=== PATIENT | female | born 1950 | race Caucasian/White ===

== ENCOUNTER 2016-11-10 22:22 | Emergency (ER) | payer BC, OTHER ==
[2016-11-10 23:07] VITALS: BP 85/64; PULSE 85; TEMP 97.7; BMI 30.9
--- NOTE | 2016-11-11 00:52 | PDOC ---
History of Present Illness - General History Source: Patient Exam Limitations: No Limitations - History of Present Illness Initial Comments: 11/11/16 00:53 Patient is a 66 year old female with a significant past medical history of parkinson's, arthritis, HTN, compressed L3 vertebra, recurring hernia, who presents to the ED with complaints of lethargy beginning 2.5 hours before arrival. Patient she reports being unable to stand and walk after eating 4 hours ago. reports patient did not lose consciousness but notice she was barely able to keep eyes open. reports patient is prescribed Carbidopa (25mg), and Gabapentin, but states she has not seen a Neurologist in 2 years due to lack of insurance. Denies facial droop, stroke symptoms. Denies chest pain, SOB, lightheadedness. Denies fever chills. Denies nausea, vomiting. Denies change in food. Denies any other symptoms. Surgeries: 3 umbilical hernias. Left and right knee replacement surgeries. Left arm surgery (broken, humerus replacement) Allergies: Iodine (Rash) PMD: Dr. Calloway <Pedro Costa - Last Filed: 11/11/16 00:53> <Porfirio Gustafson - Last Filed: 11/11/16 04:19> - General Chief Complaint: Altered Mental Status Stated Complaint: ALTERED MENTAL STATUS Time Seen by Provider: 11/10/16 23:21 Past History <Pedro Costa - Last Filed: 11/11/16 00:53> - Past Medical History Anemia: Yes Asthma: No Cancer: No Cardiac Disorders: No CVA: No COPD: No CHF: No Dementia: (FORGETFUL) Diabetes: No GI Disorders: No Disorders: No HTN: Yes Hypercholesterolemia: No Liver Disease: No Suicide Attempt (Hx): No Seizures: Yes (AGE 7) Thyroid Disease: No Other medical history: Parkinson's, arthritis - Surgical History Abdominal Surgery: Yes (HERNIA REPAIR TIMES 3) Cardiac Surgery: No Lung Surgery: No Neurologic Surgery: No Orthopedic Surgery: Yes (RIGHT AND LEFT KNEE REPLACEMENTS 2007 AND 2009) - Psycho/Social/Smoking Cessation Hx Anxiety: No Suicidal Ideation: No Smoking Status: No Smoking History: Never smoked Have you smoked in the past 12 months: No Number of Cigarettes Smoked Daily: 0 Information on smoking cessation initiated: No Hx Alcohol Use: No Drug/Substance Use Hx: No Substance Use Type: None Hx Substance Use Treatment: No <Porfirio Gustafson - Last Filed: 11/11/16 04:19> - Past Medical History Allergies/Adverse Reactions: Allergies Allergy/AdvReac Type Severity Reaction Status Date / Time iodine [Iodine] Allergy Unknown Rash Verified 11/10/16 23:04 Home Medications: Ambulatory Orders Sertraline HCl [Zoloft -] 50 mg PO DAILY tablet 10/24/14 Gabapentin [Neurontin -] 400 mg PO TID 11/03/14 Carbidopa/Levodopa *Cr* 25/100 [Sinemet *Cr* 25/100 -] 1 combo PO QID 12/13/14 Aspirin Coated [Ecotrin -] 81 mg PO DAILY #30 tablet.ec 01/26/16 Cephalexin Monohydrate [Keflex -] 500 mg PO Q6H #40 capsule 11/11/16 Review of Systems - Review of Systems Able to Perform ROS?: Yes Comments:: 11/11/16 00:53 GENERAL/CONSTITUTIONAL: +Lethargy No fever or chills. No weakness. HEAD, EYES, EARS, NOSE AND THROAT: No change in vision. No ear pain or discharge. No sore throat. CARDIOVASCULAR: No chest pain or shortness of breath. RESPIRATORY: No cough, wheezing, or hemoptysis. GASTROINTESTINAL: + Diarrhea. No nausea, vomiting or constipation. GENITOURINARY: No dysuria, frequency, or change in urination. MUSCULOSKELETAL: No joint or muscle swelling or pain. No neck or back pain. SKIN: +Pale No rash NEUROLOGIC: No headache, vertigo, loss of consciousness, or change in strength/ sensation. ENDOCRINE: No increased thirst. No abnormal weight change. HEMATOLOGIC/LYMPHATIC: No anemia, easy bleeding, or history of blood clots. ALLERGIC/IMMUNOLOGIC: No hives or skin allergy. All Other Systems: Reviewed and Negative <Pedro Costa - Last Filed: 11/11/16 00:53> *Physical Exam - Vital Signs Last Vital Signs Temp Pulse Resp BP Pulse Ox 97.7 F 85 20 85/64 97 11/10/16 23:04 11/10/16 23:04 11/10/16 23:04 11/10/16 23:04 11/10/16 23:04 - Physical Exam Comments: 11/11/16 00:54 GENERAL: Awake, alert, and fully oriented, in no acute distress HEAD: No signs of trauma EYES: PERRLA, EOMI, sclera anicteric, conjunctiva clear ENT: Auricles normal inspection, hearing grossly normal, nares patent, oropharynx clear without exudates. Moist mucosa NECK: Normal ROM, supple, no lymphadenopathy, JVD, or masses LUNGS: Breath sounds equal, clear to auscultation bilaterally. No wheezes, and no crackles HEART: Regular rate and rhythm, normal S1 and S2, no murmurs, rubs or gallops ABDOMEN: Soft, nontender, normoactive bowel sounds. No guarding, no rebound. No masses EXTREMITIES: +No reflexes in lower extremities. + Radial pulses normal bilaterally. +Upper extremity strength equal bilaterally. +Lower Extremity strength equal bilaterally. + PT and DP pulses 2+ bilaterally. Biceps 2+ bilaterally. Normal range of motion, no edema. No clubbing or cyanosis. No cords, erythema, or tenderness NEUROLOGICAL: + Non normal gait Cranial nerves II through XII grossly intact. Normal speech, SKIN: Warm, Dry, normal turgor, no rashes or lesions noted. <Pedro Costa - Last Filed: 11/11/16 00:53> - Vital Signs Last Vital Signs Temp Pulse Resp BP Pulse Ox 97.7 F 85 20 85/64 97 11/10/16 23:04 11/10/16 23:04 11/10/16 23:04 11/10/16 23:04 11/10/16 23:04 <Porfirio Gustafson - Last Filed: 11/11/16 04:19> ED Treatment Course - LABORATORY CBC & Chemistry Diagram: 11/11/16 01:05 11/11/16 01:05 - RADIOLOGY Radiology Studies Ordered: Category Date Time Status CHEST X-RAY PORTABLE* [RAD] Stat Radiology 11/11/16 00:39 Taken <Porfirio Gustafson - Last Filed: 11/11/16 04:19> *DC/Admit/Observation/Transfer - Attestations Scribe Attestion: 11/11/16 00:54 Documentation prepared by Pedro Costa, acting as medical record administrator for Porfirio Gustafson MD. <Pedro Csota - Last Filed: 11/11/16 00:53> - Discharge Dispostion Admit: No - Attestations Physician Attestion: 11/11/16 00:51 I, Dr. Porfirio Gustafson, attest that this document has been prepared under my direction and personally reviewed by me in its entirety. I further attest, that it accurately reflects all work, treatment, procedures and medical decision -making performed by me. <Porfirio Gustafson - Last Filed: 11/11/16 04:19> Diagnosis at time of Disposition: Parkinson disease Urinary tract infection Qualifiers: Urinary tract infection type: site unspecified Hematuria presence: with hematuria Qualified Code(s): N39.0 - Urinary tract infection, site not specified - Discharge Dispostion Condition at time of disposition: Unchanged/Unknown - Prescriptions Prescriptions: Cephalexin Monohydrate [Keflex -] 500 mg PO Q6H #40 capsule - Referrals Referrals: Debra Calloway MD [Primary Care Provider] - Steve Abdullahi MD [Staff Physician] - Ubaldo Barba MD [Staff Physician] - - Patient Instructions Printed Discharge Instructions: DI for Urinary Tract Infection (UTI), DI for Parkinson's Disease Additional Instructions: See Dr. Abdullahi as soon as possible.... call in the morning to make the appointment.
[2016-11-11 01:19] LABS: BASOPHIL 0.2 % (0-2.0); EOSINOPHIL 1.2 % (0-4.5); MCH 20.4 pg (25.7-33.7); MCHC 31.4 g/dl (32.0-36.0); MEAN PLT VOLUME 7.6 fl (7.5-11.1); PLATELET COUNT 360 K/MM3 (134-434); RDW 16.1 % (11.6-15.6); WHITE BLOOD COUNT 13.2 K/mm3 (4.0-10.0)
[2016-11-11] MEDS ORDERED: FAMOTIDINE 20 MG/50 ML IVPB 50 ML IVPB ONE ×2 (01:19→01:25)
[2016-11-11 01:27] LABS: VENOUS PH 7.41 (7.32-7.42)
[2016-11-11 01:28] LABS: VENOUS BLOOD GAS HCO3 24.2 meq/L (19-25)
[2016-11-11 01:29] LABS: INR 1.04 (0.82-1.09); PROTHROMBIN TIME (PATIENT) 11.5 SEC (9.98-11.88)
[2016-11-11 01:37] LABS: HYPOCHROMIA 3+; PLATELET ESTIMATE ADEQUATE (NORMAL)
[2016-11-11 01:38] LABS: ANISOCYTOSIS 1+; MICROCYTOSIS 1+
[2016-11-11 01:42] LABS: ALBUMIN 3.9 g/dl (3.4-5.0); ANION GAP 11 (8-16); BILIRUBIN,TOTAL 0.7 mg/dL (0.2-1.0); CALCIUM 9.1 mg/dL (8.5-10.1); CO2 25 mmol/L (21-32); CREATININE 0.8 mg/dL (0.55-1.02); GLUCOSE,RANDOM 126 mg/dL (74-106); SGOT/AST 16 U/L (15-37); SGPT/ALT 14 U/L (12-78); TOT PROT 7.5 g/dl (6.4-8.2)
[2016-11-11 01:44] LABS: ALK PHOS 77 U/L (45-117); CPK 48 IU/L (26-192); TROPONIN I < 0.02 ng/ml (0.00-0.05)
[2016-11-11 02:48] LABS: URINE APPEARANCE CLOUDY; URINE BILIRUBIN NEGATIVE (NEGATIVE); URINE BLOOD 1+ (NEGATIVE); URINE COLOR AMBER; URINE GLUCOSE (UA) NEGATIVE (NEGATIVE); URINE KETONE TRACE (NEGATIVE); URINE LEUK ESTERASE TRACE (NEGATIVE); URINE NITRITE NEGATIVE (NEGATIVE); URINE PROTEIN NEGATIVE (NEGATIVE); URINE UROBILINOGEN NEGATIVE mg/dL (0.2-1.0)
[2016-11-11 02:59] LABS: URINE BACTERIA MANY /hpf (NONE SEEN); URINE HYALINE CAST 9 /lpf; URINE MUCUS RARE; URINE RBC 4 /hpf (0-3); URINE WBC 5 /hpf (3-5)
[2016-11-11] MEDS ORDERED: CEFTRIAXONE 1 GM in DEXTROSE 5%-WATER - 50 ML IVPB ONE (04:13)
[2016-11-11] MEDS ORDERED: CEFTRIAXONE 50 ML ONE (04:22)
--- NOTE | 2016-11-11 17:31 | EKG ---
Test Reason : Blood Pressure : / mmHG Vent. Rate : 096 BPM Atrial Rate : 096 BPM P-R Int : 126 ms QRS Dur : 082 ms QT Int : 380 ms P-R-T Axes : 041 -03 058 degrees QTc Int : 480 ms POOR DATA QUALITY, INTERPRETATION MAY BE ADVERSELY AFFECTED SUBOPTIMAL STUDY NORMAL SINUS RHYTHM NORMAL ECG WHEN COMPARED WITH ECG OF 25-JAN-2016 16:44, NONSPECIFIC T WAVE ABNORMALITY NO LONGER EVIDENT IN LATERAL LEADS REPEAT TRACING IF CLINICALLY INDICATED Confirmed by RAFFAELE COLMENARES MD ([id number]) on 11/11/2016 5:31:39 PM Referred By: Confirmed By:RAFFAELE COLMENARES MD
== END 2016-11-11 05:27 | disposition home or self-care (01) ==
LOC: JER 22:22
PROC: 3E033GC Introduction of Other Therapeutic Substance into Peripheral Vein, Percutaneous Approach (ICD-10-PCS; principal; 2016-11-10)
PROC: 3E03329 Introduction of Other Anti-infective into Peripheral Vein, Percutaneous Approach (ICD-10-PCS; 2016-11-10)
DX: N39.0 Urinary tract infection, site not specified (principal); G20 Parkinson's disease; F02.80 Dementia in other diseases classified elsewhere, unspecified severity, without behavioral disturbance, psychotic disturbance, mood disturbance, and anxiety; I10 Essential (primary) hypertension; M12.9 Arthropathy, unspecified
CPT/HCPCS: 36415; 71010-TC; 80053; 81003; 81015; 82803; 83605; 83690; 84484; 85025; 85610; 87040; 87086; 93005; 93010; 99282-25

== ENCOUNTER 2019-03-28 17:55 | Inpatient (IN) | payer BC, OTHER ==
--- NOTE | 2019-03-28 18:00 | PDOC ---
Rapid Medical Evaluation Time Seen by Provider: 03/28/19 17:59 Medical Evaluation: Allergies Allergy/AdvReac Type Severity Reaction Status Date / Time iodine [Iodine] Allergy Unknown Rash Verified 11/10/16 23:04 03/28/19 18:00 I performed a brief in-person evaluation of this patient. 68-year-old female with HTN, Parkinson's. Non-ambulatory at baseline, brought in by family with three days of cough, increased weakness, decreased PO intake. Pertinent physical exam findings: Alert and oriented, slow to respond. Dry mucous membranes. Moist cough; lungs clear anteriorly. I have ordered the following: CXR Sepsis panel NS bolus Flu swab Patient to proceed to the ED for further evaluation. Discharge Disposition - Diagnosis Weakness - Referrals - Patient Instructions - Post Discharge Activity
[2019-03-28] MEDS ORDERED: SODIUM CHLORIDE 1,000 ML IV STA (18:05)
[2019-03-28 18:56] LABS: BASO % 0.8 % (0-2.0); EOS % 0.2 % (0-4.5); HEMATOCRIT 24.4 % (32.4-45.2); HEMOGLOBIN 7.6 GM/dL (10.7-15.3); LYMPH % 12.8 % (8-40); MCH 20.1 pg (25.7-33.7); MCHC 31.3 g/dl (32.0-36.0); MEAN CELL VOLUME 64.4 fl (80-96); MEAN PLT VOLUME 8.6 fl (7.5-11.1); MONO % 6.3 % (3.8-10.2); NEUT % 79.9 % (42.8-82.8); PLATELET COUNT 643 K/MM3 (134-434); RBC 3.79 M/mm3 (3.60-5.2); RDW 14.7 % (11.6-15.6); WHITE BLOOD COUNT 18.8 K/mm3 (4.0-10.0)
[2019-03-28 19:27] LABS: ALBUMIN 2.5 g/dl (3.4-5.0); ALK PHOS 91 U/L (45-117); ANION GAP 5 MMOL/L (8-16); BILIRUBIN,TOTAL 0.8 mg/dL (0.2-1); BLOOD UREA NITROGEN 34.7 mg/dL (7-18); CALCIUM 8.4 mg/dL (8.5-10.1); CHLORIDE 108 mmol/L (98-107); CO2 29 mmol/L (21-32); CREATININE 0.8 mg/dL (0.55-1.3); GLUCOSE,RANDOM 103 mg/dL (74-106); POTASSIUM 4.9 mmol/L (3.5-5.1); SGOT/AST 59 U/L (15-37); SGPT/ALT 17 U/L (13-61); SODIUM 142 mmol/L (136-145); TOT PROT 6.7 g/dl (6.4-8.2)
[2019-03-28 19:28] LABS: ANISOCYTOSIS 2+; OVALOCYTE 1+; PLATELET ESTIMATE INCREASED; TARGET CELLS 1+
[2019-03-28] MEDS ORDERED: ACETAMINOPHEN 1000 MG/100 ML VIAL (NON FORMULARY) IVPB ONE (20:25)
[2019-03-28] MEDS ORDERED: ACETAMINOPHEN INJECTION 100 ML IVPB ONE (20:32)
--- NOTE | 2019-03-28 20:53 | PDOC ---
History of Present Illness - General Chief Complaint: Weakness Stated Complaint: WEAKNESS/FEVER Time Seen by Provider: 03/28/19 17:59 History Source: Patient Exam Limitations: No Limitations - History of Present Illness Initial Comments: 03/28/19 20:44 68 yo female pmh HTN, Parkinsons presents to the ED for 3 days of worsening cough, weakness and decreased PO intake. Baseline pt non ambulatory, helps to take care of her. Pt reports increased difficulty breathing and fevers at home, taken tylenol with improvement of symptoms. Denies sick contacts or recent travel. Pt reports intermittent RLQ pain as well, denies changes in bowel or bladder habits, CP, back pain, sore throat, ear pain. Past History - Past Medical History Allergies/Adverse Reactions: Allergies Allergy/AdvReac Type Severity Reaction Status Date / Time iodine [Iodine] Allergy Unknown Rash Verified 03/28/19 18:00 Home Medications: Ambulatory Orders Sertraline HCl [Zoloft -] 50 mg PO DAILY tablet 10/24/14 Gabapentin [Neurontin -] 400 mg PO TID 11/03/14 Carbidopa/Levodopa *Cr* 25/100 [Sinemet *Cr* 25/100 -] 1 combo PO QID 12/13/14 Aspirin Coated [Ecotrin -] 81 mg PO DAILY #30 tablet.ec 01/26/16 Cephalexin Monohydrate [Keflex -] 500 mg PO Q6H #40 capsule 11/11/16 Anemia: Yes Asthma: No Cancer: No Cardiac Disorders: No CVA: No COPD: No CHF: No Dementia: (FORGETFUL) Diabetes: No GI Disorders: No Disorders: No HTN: Yes Hypercholesterolemia: No Liver Disease: No Seizures: Yes (AGE 7) Thyroid Disease: No Other medical history: PARKINSONS - Surgical History Abdominal Surgery: Yes (HERNIA REPAIR TIMES 3) Cardiac Surgery: No Lung Surgery: No Neurologic Surgery: No Orthopedic Surgery: Yes (RIGHT AND LEFT KNEE REPLACEMENTS 2007 AND 2009) - Immunization History Immunization Up to Date: No - Psycho Social/Smoking Cessation Hx Smoking Status: No Smoking History: Never smoked Have you smoked in the past 12 months: No Number of Cigarettes Smoked Daily: 0 Hx Alcohol Use: No Drug/Substance Use Hx: No Substance Use Type: None Hx Substance Use Treatment: No Review of Systems - Review of Systems Constitutional: Yes: Fever Respiratory: Yes: Shortness of Breath, Productive cough Cardiac (ROS): No: Chest Pain ABD/GI: Yes: Nausea, Other (RLQ pain). No: Constipated, Diarrhea, Vomiting : No: Burning, Dysuria, Flank Pain, Hematuria Integumentary: No: Change in Color Neurological: No: Headache, Weakness *Physical Exam - Vital Signs Last Vital Signs Temp Pulse Resp BP Pulse Ox 100.5 F H 81 20 112/37 L 93 L 03/28/19 19:34 03/28/19 18:01 03/28/19 18:01 03/28/19 18:01 03/28/19 18:01 - Physical Exam General Appearance: Yes: Nourished, Appropriately Dressed. No: Apparent Distress HEENT: positive: EOMI Neck: positive: Supple. negative: Carotid bruit Respiratory/Chest: positive: Lungs Clear, Normal Breath Sounds. negative: Respiratory Distress, Accessory Muscle Use Cardiovascular: positive: Regular Rhythm, Regular Rate, S1, S2. negative: Edema , JVD, Murmur Vascular Pulses: Dorsalis-Pedis (R): 4+, Doralis-Pedis (L): 4+ Gastrointestinal/Abdominal: positive: Tender (RLQ), Flat, Soft. negative: Protuberent, Distended, Guarding, Rebound Musculoskeletal: negative: CVA Tenderness Integumentary: positive: Normal Color, Dry, Warm Neurologic: positive: Fully Oriented, Alert, Normal Mood/Affect, Normal Response ED Treatment Course - LABORATORY CBC & Chemistry Diagram: 03/28/19 18:30 03/28/19 18:30 - ADDITIONAL ORDERS Additional order review: Laboratory Results 03/28/19 03/28/19 18:30 18:30 Sodium 142 Potassium 4.9 Chloride 108 H Carbon Dioxide 29 Anion Gap 5 L BUN 34.7 H Creatinine 0.8 Est GFR (CKD-EPI)AfAm 87.18 Est GFR (CKD-EPI)NonAf 75.22 Random Glucose 103 Lactic Acid 1.3 Calcium 8.4 L Total Bilirubin 0.8 AST 59 H ALT 17 Alkaline Phosphatase 91 Troponin I < 0.02 Total Protein 6.7 Albumin 2.5 L 03/28/19 18:30 RBC 3.79 MCV 64.4 L MCHC 31.3 L RDW 14.7 MPV 8.6 D Neutrophils % 79.9 Lymphocytes % 12.8 D Monocytes % 6.3 Eosinophils % 0.2 D Basophils % 0.8 D - Medications Given in the ED: ED Medications Discontinued Medications Generic Name Dose Route Start Last Admin Trade Name Nilay PRN Reason Stop Dose Admin Sodium Chloride 1,000 mls @ 1,000 mls/hr 03/28/19 18:05 03/28/19 18:50 Normal Saline - IV 03/28/19 19:04 1,000 mls/hr ASDIR STA Administration Medical Decision Making - Medical Decision Making 03/29/19 01:30 68 yo female pmh HTN, Parkinsons presents to the ED for 3 days of worsening cough, weakness and decreased PO intake. Baseline pt non ambulatory, helps to take care of her. Pt reports increased difficulty breathing and fevers at home, taken tylenol with improvement of symptoms. Denies sick contacts or recent travel. Pt reports intermittent RLQ pain as well, denies changes in bowel or bladder habits, CP, back pain, sore throat, ear pain. vitals show elevated temp will treat with Tylenol X ray shows no acute path. Labs show WBC 19, lactate 1.3 CTAP shows cecitis vs appy with possible microperforations. Antibiotics and fluids given. Discussed with Dr. Mello who agrees to see pt in the AM Discharge - Discharge Information Problems reviewed: Yes Clinical Impression/Diagnosis: Weakness, Cecitis, Appendicitis Condition: Stable - Admission Yes - Follow up/Referral Referrals: Debra Calloway MD [Primary Care Provider] - - Patient Discharge Instructions - Post Discharge Activity
--- NOTE | 2019-03-28 20:59 | PDOC ---
Attending Attestation - Resident Resident Name: Ivan San - ED Attending Attestation I have performed the following: I have examined & evaluated the patient, The case was reviewed & discussed with the resident, I agree w/resident's findings & plan - HPI HPI: 03/28/19 23:14 see resident hpi - Physicial Exam PE: 03/28/19 23:14 see resident exam - Critical Care Time Total Critical Care Time: 60 Critical Care Statement: The care of this patient involved high complexity decision making to prevent further life threatening deterioration of the patient 's condition and/or to evaluate & treat vital organ system(s) failure or risk of failure. - Medical Decision Making 03/28/19 23:14 68-year-old female with cough fevers and lethargy Chest x-ray shows no focal infiltrate Patient found to have right lower quadrant tenderness on exam CT scan of the abdomen and pelvis has been ordered Will admit pending CT scan results due to increasing weakness, elevated white blood cell count and mild hypoxemia Of note patient also has worsening anemia, with elevated BUN Guaiac testing is negative Plan for repeat CBC while patient is in the department after 1 L of IV fluid Will transfuse as necessary 03/28/19 23:50 03/28/19 23:57
[2019-03-28 21:45] LABS: INR 1.36 (0.83-1.09); PROTHROMBIN TIME (PATIENT) 16.1 SEC (9.7-13.0)
[2019-03-28 21:48] LABS: ACTIVATED PTT 23.3 SECONDS (25.2-36.5)
[2019-03-28] MEDS ORDERED: ALBUTEROL SO4 2.5/IPRATROPIUM 0.5 INH SOL 3 ML VIAL.NEB. NEB ONE (23:13)
[2019-03-29] MEDS ORDERED: PIPERACILLIN/TAZOB 4.5 GM 4.5 GM in DEXTROSE 5%-WATER 100 ML IVPB ONE (00:40)
[2019-03-29] MEDS ORDERED: ALBUTEROL SO4 2.5/IPRATROPIUM 0.5 INH SOL 3 ML VIAL.NEB. NEB ONE (01:00)
[2019-03-29] MEDS ORDERED: PIPERACILLIN/TAZOB 4.5 GM 4.5 GM/100 ML BAG IVPB ONE (01:01)
[2019-03-29 01:31] LABS: BASO % 0.3 % (0-2.0); EOS % 0.6 % (0-4.5); MCH 20.1 pg (25.7-33.7); MCHC 31.4 g/dl (32.0-36.0); MONO % 5.1 % (3.8-10.2); PLATELET COUNT 565 K/MM3 (134-434); RBC 3.44 M/mm3 (3.60-5.2); RDW 14.8 % (11.6-15.6); WHITE BLOOD COUNT 15.6 K/mm3 (4.0-10.0)
[2019-03-29 01:37] LABS: HEMOGLOBIN 6.9 GM/dL (10.7-15.3)
--- NOTE | 2019-03-29 02:04 | PN ---
Teaching Attending Note Name of Resident: Pierre Torres ATTENDING PHYSICIAN STATEMENT I saw and evaluated the patient. I reviewed the resident's note and discussed the case with the resident. I agree with the resident's findings and plan as documented. SUBJECTIVE: Patient is a 68 year old woman with a PMH of HTN, Parkinsons disease, Bilateral knee and left shoulder replacements, Chronic left shoulder pain (takes NSAIDS daily) and Hernia repair who presents to the ER with worsening cough, weakness and decreased oral intake for 3 days. Patient is nonambulatory at baseline and helps to take care of her. Patient reports increased difficulty breathing and fevers at home. Took tylenol with improvement of symptoms. Denies sick contacts or recent travel. Patient reports intermittent RLQ pain as well, denies changes in bowel or bladder habits, chest pain, back pain, sore throat or ear pain. Denies alcohol, tobacco or illicit drug use. No recent travels. FH of anemia. OBJECTIVE: Alert Vital Signs Period Temp Pulse Resp BP Sys/Villegas Pulse Ox Last 24 Hr 98.3 F-100.5 F 81-104 18-20 112-132/37-64 93-93 HEENT: No Jaundice, eye redness or discharge, PERRLA, EOMI. Normocephalic, atraumatic. External ears are normal. No nasal discharge. Neck: Supple, nontender. No palpable adenopathy or thyromegaly. No JVD Chest: Good effort. Clear to auscultation and percussion. Heart: Regular. No S3, rub or murmur Abdomen: Not distended, soft, RLQ tenderness and no HSM. No rebound or guarding. Normal bowel sounds. Ext: Peripheral pulses intact. No leg edema. Skin: Warm and dry. No petechiae, rash or ecchymosis. Neuro: Alert. Oriented to person. CN 2-12 grossly intact. Sensation grossly intact in all four extremities and DTR are symmetric. Psych: Appropriate mood and affect. Good insight. Current Medications Generic Name Dose Route Start Last Admin Trade Name Freq PRN Reason Stop Dose Admin Acetaminophen 1,000 mg 03/29/19 02:58 Ofirmev Injection - IVPB Q6H PRN PAIN LEVEL 6-10 Carbidopa/Levodopa 1 combo 03/29/19 10:00 Sinemet *Cr* 25/100 - PO QID SOLANGE Gabapentin 400 mg 03/29/19 06:00 Neurontin - PO TID SOLANGE Sodium Chloride 1,000 mls @ 75 mls/hr 03/29/19 03:00 Normal Saline - IV ASDIR SOLANGE Piperacillin Sod/Tazobactam 100 mls @ 200 mls/hr 03/29/19 07:30 Sod 4.5 gm/ Dextrose IVPB 03/30/19 03:29 Q6H-IV SOLANGE Protocol Piperacillin Sod/Tazobactam 100 mls @ 200 mls/hr 03/30/19 09:00 Sod 4.5 gm/ Dextrose IVPB Q6H-IV SOLANGE Protocol Sertraline HCl 50 mg 03/29/19 10:00 Zoloft - PO DAILY [facility] Home Medications Medication Instructions Recorded Sertraline HCl [Zoloft -] 50 mg PO DAILY tablet 10/24/14 Gabapentin [Neurontin -] 400 mg PO TID 11/03/14 Carbidopa/Levodopa *Cr* 25/100 1 combo PO QID 12/13/14 [Sinemet *Cr* 25/100 -] Aspirin Coated [Ecotrin -] 81 mg PO DAILY #30 tablet.ec 01/26/16 Cephalexin Monohydrate [Keflex -] 500 mg PO Q6H #40 capsule 11/11/16 Abnormal Lab Results 03/28/19 03/28/19 03/28/19 18:30 18:30 20:48 WBC 18.8 H RBC Hgb 7.6 L Hct 24.4 L D MCV 64.4 L MCH 20.1 L MCHC 31.3 L Plt Count 643 H D Absolute Neuts (auto) 15.1 H PT with INR 16.10 H INR 1.36 H PTT (Actin FS) 23.3 L Chloride 108 H Anion Gap 5 L BUN 34.7 H Calcium 8.4 L AST 59 H Albumin 2.5 L Crossmatch 03/29/19 03/29/19 01:07 01:07 WBC 15.6 H RBC 3.44 L Hgb 6.9 L* Hct 22.0 L MCV 64.0 L MCH 20.1 L MCHC 31.4 L Plt Count 565 H Absolute Neuts (auto) 11.9 H PT with INR INR PTT (Actin FS) Chloride Anion Gap BUN Calcium AST Albumin Crossmatch See Detail ASSESSMENT AND PLAN: 1. Appendicitis/Cecitis with possible microperforations, abscess or infarct - These findings were noted on the CT scan of abdomen/pelvis. No acute abnormality on CXR. Patient getting IV NS, being kept NPO and treated with IV Zosyn. Surgery consulted by ER staff. Will also give IV Protonix - may have NSAID-associated gastrointestinal bleeding. EKG shows NSR with nonspecific ST-T wave changes. Will continue comprehensive care for all of patients comorbid conditions including Sinemet for Parkinson's disease. Patient counseled to avoid NSAIDS. 2. Hypoalbuminemia - Possibly due to combined effects of malnutrition and inflammation associated with comorbid chronic conditions. Will ensure adequate dietary protein intake and also consult food mobile driver. Urinalysis pending. 3. HANNA - Likely dehydrated and may also have NSAID-associated injury. Hydrate gently. Will consult nephrology and avoid nephrotoxic agents such as NSAIDS, aminoglycosides, contrast dyes and certain Alternative medicine products. 4. Low MCV Anemia - Likely multifactorial including GI bleeding. Do basic anemia work up including serial stool guaiacs, reticulocyte count and iron studies. Would benefit from Procrit therapy once iron replete. 5. Obesity Counseled on the risks associated with obesity. Will provide patient all the necessary assistance, counseling and positive reinforcement to facilitate weight loss. Consult food mobile driver. 6. Hypertension - Restart suitable outpatient antihypertensive drugs when clinically appropriate. Revise regimen to ensure [id number] excellent BP control and eap counselor patient on the injurious effects of uncontrolled hypertension. Nonpharmacologic measures to control hypertension like weight loss , salt restriction and exercise discussed. Importance of adherence to treatment regimen and attainment of normotension emphasized. 7. DVT prophylaxis - SCD 8. Advance directives - Full code
--- NOTE | 2019-03-29 03:04 | HP ---
CHIEF COMPLAINT: weakness and lethargy PCP: Dr. Debra Calloway HISTORY OF PRESENT ILLNESS: Nasrin Park is a 68 year old female with a past medical history of Parkinson' s disease (on Sinemet), HTN, arthritis who presents with a 5 day history of weakness, lethargy, intermittent shortness of breath, cough. The patient was noted by the who is at bedside to have become more tired and not ambulating as well as she usually does. Normally, the patient is able to ambulate with a walker. She was noted to have a productive cough of clear to white sputum as well as some intermitted shortness of breath. The patient slept most of the day and did not have good PO intake in the last several days. Endorsed subjective fever. noted that the patient had been having a longer standing history of constipation and takes over the counter medications for the constipation. Denied melena or hematochezia. Additionally, the notes that the patient takes over the counter NSAIDs Advil, Alleve, aspirin for pain in her shoulder on a daily basis. Intermittently complained of mild and non-specific abdominal pain. Denied any liver history, nausea, vomiting, chest pain, headaches, dizziness, lightheadedness, falls. Denied sick contacts or recent travel. On interview, patient was responsive to commands but denied any acute complaints. Kept her eyes closed throughout the interview and repeated the same request of wanting a medication to help her sleep. Did answer questions appropriately. ER course was notable for: (1) Tmax 100.5, BP 112/37, sat 98 on 2L NC (2) WBC 18.8, Hgb 7.6-->6.9, plts 643, MCV 64, BUN 34.7, AST 59, Alb 2.5 (3) CXR without acute pathology. (4) CT abdomen preliminary read noting Severe L3 compression fracture, of uncertain age. Mild T11 fracture, probably old. Focal inflammation / infection seen at right lower quadrant, including cecum and adjacent soft tissues. Compatible with cecitis. Appendix is not visualized separately, and appendicitis cannot be excluded (this may be secondary to cecal inflammation). No obstruction seen. Small air bubbles seen in the area of inflammation may be due to volume averaging artifact, abscess / infection, or microperforation. 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 Allergies iodine [Iodine] Allergy (Unknown, Verified 03/28/19 18:00) Rash HOME MEDICATIONS: Home Medications Medication Instructions Recorded Sertraline HCl [Zoloft -] 50 mg PO DAILY tablet 10/24/14 Gabapentin [Neurontin -] 400 mg PO TID 11/03/14 Carbidopa/Levodopa *Cr* 25/100 1 combo PO QID 12/13/14 [Sinemet *Cr* 25/100 -] Aspirin Coated [Ecotrin -] 81 mg PO DAILY #30 tablet.ec 01/26/16 Cephalexin Monohydrate [Keflex -] 500 mg PO Q6H #40 capsule 11/11/16 REVIEW OF SYSTEMS CONSTITUTIONAL: fever, generalized weakness, loss of appetite, malaise Absent: chills, diaphoresis, weight change HEENT: Absent: rhinorrhea, nasal congestion, throat pain, throat swelling, difficulty swallowing, visual changes CARDIOVASCULAR: Absent: chest pain, syncope, palpitations, irregular heart rate, lightheadedness , peripheral edema RESPIRATORY: cough, shortness of breath Absent: dyspnea with exertion, orthopnea, wheezing, stridor, hemoptysis GASTROINTESTINAL: abdominal pain, constipation Absent: abdominal distension, nausea, vomiting, diarrhea, melena, hematochezia GENITOURINARY: Absent: dysuria, frequency, urgency, hesitancy, hematuria, flank pain, MUSCULOSKELETAL: Absent: myalgia, arthralgia, joint swelling, back pain, neck pain SKIN: Absent: rash, itching, pallor HEMATOLOGIC/IMMUNOLOGIC: Absent: easy bleeding, easy bruising, lymphadenopathy, frequent infections ENDOCRINE: Absent: unexplained weight gain, unexplained weight loss, heat intolerance, cold intolerance NEUROLOGIC: Absent: headache, focal weakness or paresthesias, dizziness, unsteady gait, seizure, mental status changes PSYCHIATRIC: Absent: anxiety, depression, suicidal or homicidal ideation, hallucinations. PHYSICAL EXAMINATION Vital Signs - 24 hr 03/28/19 03/28/19 03/29/19 18:01 19:34 02:14 Temperature 99.0 F 100.5 F H 98.3 F Pulse Rate 81 Pulse Rate [ 104 H Left Radial] Respiratory 20 18 Rate Blood Pressure 112/37 L Blood Pressure 132/64 [Left Arm] O2 Sat by Pulse 93 L 93 L Oximetry (%) GENERAL: Awake, alert, and oriented to self and hospital. No acute distress. Not opening eyes, mild discomfort. Pakistani speaking. HEAD: Normal with no signs of trauma. EARS, NOSE, THROAT: Oropharynx clear without exudates. Dry mucous membranes. NECK: Supple without lymphadenopathy, JVD. LUNGS: Breath sounds equal, clear to auscultation bilaterally. No wheezes, and no crackles. No accessory muscle use. HEART: Regular rate and rhythm, normal S1 and S2 without murmur, rub. ABDOMEN: Soft, nontender to palpation in any quadrant, not distended, normoactive bowel sounds, no guarding, no rebound, palpated periumbilical hernia. MUSCULOSKELETAL: No bony deformities or tenderness. UPPER EXTREMITIES: 2+ pulses, warm, well-perfused. No cyanosis. No clubbing. No peripheral edema. LOWER EXTREMITIES: 2+ pulses, warm, well-perfused. No calf tenderness. No peripheral edema. NEUROLOGICAL: Spontaneously moves all extremities. [employer] strength 5/5. CN II- XII intact. PSYCHIATRIC: Cooperative. Does not speak much. SKIN: Warm, dry, decreased turgor, no rashes or lesions noted, normal capillary refill. Laboratory Results - last 24 hr 03/28/19 03/28/19 03/28/19 18:00 18:30 18:30 WBC RBC Hgb Hct MCV MCH MCHC RDW Plt Count MPV Absolute Neuts (auto) Neutrophils % Lymphocytes % Monocytes % Eosinophils % Basophils % Nucleated RBC % Hypochromia Platelet Estimate Platelet Comment Poikilocytosis Anisocytosis Target Cells Ovalocytes PT with INR INR PTT (Actin FS) Sodium 142 Potassium 4.9 Chloride 108 H Carbon Dioxide 29 Anion Gap 5 L BUN 34.7 H Creatinine 0.8 Est GFR (CKD-EPI)AfAm 87.18 Est GFR (CKD-EPI)NonAf 75.22 Random Glucose 103 Lactic Acid 1.3 Calcium 8.4 L Total Bilirubin 0.8 AST 59 H ALT 17 Alkaline Phosphatase 91 Troponin I < 0.02 Total Protein 6.7 Albumin 2.5 L Stool Occult Blood Influenza A (Rapid) Negative Influenza B (Rapid) Negative Blood Type Antibody Screen Crossmatch 03/28/19 03/28/19 03/28/19 18:30 20:31 20:48 WBC 18.8 H RBC 3.79 Hgb 7.6 L Hct 24.4 L D MCV 64.4 L MCH 20.1 L MCHC 31.3 L RDW 14.7 Plt Count 643 H D MPV 8.6 D Absolute Neuts (auto) 15.1 H Neutrophils % 79.9 Lymphocytes % 12.8 D Monocytes % 6.3 Eosinophils % 0.2 D Basophils % 0.8 D Nucleated RBC % 0 Hypochromia 2+ Platelet Estimate Increased Platelet Comment No clumping noted Poikilocytosis 1+ Anisocytosis 2+ Target Cells 1+ Ovalocytes 1+ PT with INR 16.10 H INR 1.36 H PTT (Actin FS) 23.3 L Sodium Potassium Chloride Carbon Dioxide Anion Gap BUN Creatinine Est GFR (CKD-EPI)AfAm Est GFR (CKD-EPI)NonAf Random Glucose Lactic Acid Calcium Total Bilirubin AST ALT Alkaline Phosphatase Troponin I Total Protein Albumin Stool Occult Blood Negative Influenza A (Rapid) Influenza B (Rapid) Blood Type Antibody Screen Crossmatch 03/28/19 03/29/19 03/29/19 20:48 01:07 01:07 WBC 15.6 H RBC 3.44 L Hgb 6.9 L* Hct 22.0 L MCV 64.0 L MCH 20.1 L MCHC 31.4 L RDW 14.8 Plt Count 565 H MPV 8.0 Absolute Neuts (auto) 11.9 H Neutrophils % 76.0 Lymphocytes % 18.0 D Monocytes % 5.1 Eosinophils % 0.6 D Basophils % 0.3 Nucleated RBC % 0 Hypochromia Platelet Estimate Platelet Comment Poikilocytosis Anisocytosis Target Cells Ovalocytes PT with INR INR PTT (Actin FS) Sodium Potassium Chloride Carbon Dioxide Anion Gap BUN Creatinine Est GFR (CKD-EPI)AfAm Est GFR (CKD-EPI)NonAf Random Glucose Lactic Acid Calcium Total Bilirubin AST ALT Alkaline Phosphatase Troponin I Total Protein Albumin Stool Occult Blood Influenza A (Rapid) Influenza B (Rapid) Blood Type O POSITIVE O POSITIVE Antibody Screen Negative Negative Crossmatch See Detail EKG--> NSR, T wave flattening in III, non-specific, no ST segment changes, QTc 427 ASSESSMENT/PLAN: Nasrin Park is a 68 year old female with a past medical history of Parkinson' s disease (on Sinemet), HTN, arthritis admitted for gastrointestinal inflammation and anemia. Gastrointestinal Inflammation - likely cecitis vs appendicitis as per CT read - has elevated WBC, temperature - continue Zosyn - ID consulted - Surgery consulted, Dr. Mello will see patient in AM - continue NS at 75cc/hr - Tylenol for pain - NPO pending any surgical intervention Anemia - BUN/CRE ratio >40, suggesting possible GI bleed - attempting to get iron studies prior to transfusion - 2 units to be transfused - continue to monitor - Protonix for any potential GI ulceration in setting of chronic NSAID use - advised family to cease using NSAIDS Hypoalbuniemia - possible in setting of poor nutrition - dietary consult Parkinson's - continue home Sinemet HTN - hold home meds currently in setting of low BP and possible GI bleed - can restart when vitals stabilized DVT PPx - SCDs - no chemical prophylaxis due to anemia FEN - NS at 75cc/hr - continue to monitor electrolytes and replete as necessary - NPO pending surgical intervention Dispo - admit to telemetry Family Medical History Other Family History: Mother and "many other family members" with anemia of unknown cause Visit type - Emergency Visit Emergency Visit: Yes ED Registration Date: 03/29/19 Care time: The patient presented to the Emergency Department on the above date and was hospitalized for further evaluation of their emergent condition. - New Patient This patient is new to me today: Yes Date on this admission: 03/29/19 - Critical Care Critical Care patient: No
[2019-03-29] MEDS: SODIUM CHLORIDE 1,000 ML IV SCH (03:33)
[2019-03-29] MEDS ORDERED: PANTOPRAZOLE SODIUM 40 MG VIAL ONE (05:07)
[2019-03-29] MEDS ORDERED: GABAPENTIN 100 MG CAPSULE ONE (05:08)
[2019-03-29 06:27] LABS: IRON SERUM 21 ug/dL (50-175); TOTAL IRON BINDING CAPACITY 187 ug/dL (250-450)
[2019-03-29] MEDS: GABAPENTIN 400 MG CAPSULE PO SCH ×3 (06:51→22:02)
[2019-03-29] MEDS ORDERED: PIPERACILLIN/TAZOB 4.5 GM 4.5 GM in DEXTROSE 5%-WATER 100 ML IVPB SCH (07:30)
[2019-03-29] MEDS: SERTRALINE HCL 50 MG TABLET (FP) PO SCH (09:49)
[2019-03-29] MEDS ORDERED: ACETAMINOPHEN INJECTION 100 ML IVPB ONE ×2 (09:54→12:42)
[2019-03-29] MEDS: ACETAMINOPHEN 1000 MG/100 ML VIAL (NON FORMULARY) IVPB PRN ×2 (09:58→12:45)
[2019-03-29] MEDS: PANTOPRAZOLE SODIUM 40 MG VIAL IVPUSH SCH (10:05)
--- NOTE | 2019-03-29 11:29 | EKG ---
Test Reason : Blood Pressure : / mmHG Vent. Rate : 081 BPM Atrial Rate : 081 BPM P-R Int : 136 ms QRS Dur : 070 ms QT Int : 368 ms P-R-T Axes : 039 -12 024 degrees QTc Int : 427 ms POOR DATA QUALITY, INTERPRETATION MAY BE ADVERSELY AFFECTED NORMAL SINUS RHYTHM NONSPECIFIC ST ABNORMALITY ABNORMAL ECG WHEN COMPARED WITH ECG OF 11-NOV-2016 04:00, NON-SPECIFIC CHANGE IN ST SEGMENT IN LATERAL LEADS T WAVE AMPLITUDE HAS INCREASED IN LATERAL LEADS QT HAS SHORTENED Confirmed by Armand Levine MD ([id number]) on 03/29/2019 11:29:02 AM Referred By: Confirmed By:Armand Levine MD
--- NOTE | 2019-03-29 11:45 | PN ---
Progress Note (short form) - Note Progress Note: Pt examined in ER at bedside Ptr is mostly wheelchair/bedbound No pain was transfused one unit today Vital Signs - 24 hr 03/28/19 03/28/19 03/28/19 17:56 18:01 19:34 Temperature 101.1 F H 99.0 F 100.5 F H Pulse Rate 81 Pulse Rate [ 91 H Left Radial] Respiratory 16 20 Rate Blood Pressure 112/37 L Blood Pressure 136/77 [Left Arm] O2 Sat by Pulse 96 93 L Oximetry (%) 03/29/19 03/29/19 03/29/19 02:14 04:30 06:06 Temperature 98.3 F 98.4 F Pulse Rate 88 Pulse Rate [ 104 H Left Radial] Respiratory 18 18 18 Rate Blood Pressure 111/67 Blood Pressure 132/64 [Left Arm] O2 Sat by Pulse 93 L 97 Oximetry (%) Current Medications Generic Name Dose Route Start Last Admin Trade Name Freq PRN Reason Stop Dose Admin Acetaminophen 1,000 mg 03/29/19 02:58 03/29/19 09:58 Ofirmev Injection - IVPB 1,000 mg Q6H PRN Administration PAIN LEVEL 6-10 Carbidopa/Levodopa 1 combo 03/29/19 10:00 03/29/19 09:49 Sinemet *Cr* 25/100 - PO 1 combo QID SOLANGE Administration Gabapentin 400 mg 03/29/19 06:00 03/29/19 06:51 Neurontin - PO 400 mg TID SOLANGE Administration Sodium Chloride 1,000 mls @ 75 mls/hr 03/29/19 03:00 03/29/19 03:33 Normal Saline - IV 75 mls/hr ASDIR SOLANGE Administration Piperacillin Sod/Tazobactam 50 mls @ 100 mls/hr 03/29/19 18:00 Sod 3.375 gm/ Dextrose IVPB Q8H-IV SOLANGE Protocol Metronidazole 500 mg in 100 mls @ 100 mls/hr 03/29/19 12:00 Flagyl 500mg Premixed Ivpb - IVPB Q8H-IV SOLANGE Pantoprazole Sodium 40 mg 03/29/19 10:00 03/29/19 10:05 Protonix Iv IVPUSH 40 mg DAILY SOLANGE Administration Sertraline HCl 50 mg 03/29/19 10:00 03/29/19 09:49 Zoloft - PO 50 mg DAILY SOLANGE Administration Laboratory Results - last 24 hr 03/28/19 03/28/19 03/28/19 18:00 18:30 18:30 WBC RBC Hgb Hct MCV MCH MCHC RDW Plt Count MPV Absolute Neuts (auto) Neutrophils % Lymphocytes % Monocytes % Eosinophils % Basophils % Nucleated RBC % Hypochromia Platelet Estimate Platelet Comment Poikilocytosis Anisocytosis Target Cells Ovalocytes PT with INR INR PTT (Actin FS) Sodium 142 Potassium 4.9 Chloride 108 H Carbon Dioxide 29 Anion Gap 5 L BUN 34.7 H Creatinine 0.8 Est GFR (CKD-EPI)AfAm 87.18 Est GFR (CKD-EPI)NonAf 75.22 Random Glucose 103 Lactic Acid 1.3 Calcium 8.4 L Iron 21 L TIBC 187 L Iron Saturation 11 L Unsaturated IBC 166 L Total Bilirubin 0.8 AST 59 H ALT 17 Alkaline Phosphatase 91 Troponin I < 0.02 Total Protein 6.7 Albumin 2.5 L Stool Occult Blood Influenza A (Rapid) Negative Influenza B (Rapid) Negative Blood Type Antibody Screen Crossmatch 03/28/19 03/28/19 03/28/19 18:30 20:31 20:48 WBC 18.8 H RBC 3.79 Hgb 7.6 L Hct 24.4 L D MCV 64.4 L MCH 20.1 L MCHC 31.3 L RDW 14.7 Plt Count 643 H D MPV 8.6 D Absolute Neuts (auto) 15.1 H Neutrophils % 79.9 Lymphocytes % 12.8 D Monocytes % 6.3 Eosinophils % 0.2 D Basophils % 0.8 D Nucleated RBC % 0 Hypochromia 2+ Platelet Estimate Increased Platelet Comment No clumping noted Poikilocytosis 1+ Anisocytosis 2+ Target Cells 1+ Ovalocytes 1+ PT with INR 16.10 H INR 1.36 H PTT (Actin FS) 23.3 L Sodium Potassium Chloride Carbon Dioxide Anion Gap BUN Creatinine Est GFR (CKD-EPI)AfAm Est GFR (CKD-EPI)NonAf Random Glucose Lactic Acid Calcium Iron TIBC Iron Saturation Unsaturated IBC Total Bilirubin AST ALT Alkaline Phosphatase Troponin I Total Protein Albumin Stool Occult Blood Negative Influenza A (Rapid) Influenza B (Rapid) Blood Type Antibody Screen Crossmatch 03/28/19 03/29/19 03/29/19 20:48 01:07 01:07 WBC 15.6 H RBC 3.44 L Hgb 6.9 L* Hct 22.0 L MCV 64.0 L MCH 20.1 L MCHC 31.4 L RDW 14.8 Plt Count 565 H MPV 8.0 Absolute Neuts (auto) 11.9 H Neutrophils % 76.0 Lymphocytes % 18.0 D Monocytes % 5.1 Eosinophils % 0.6 D Basophils % 0.3 Nucleated RBC % 0 Hypochromia Platelet Estimate Platelet Comment Poikilocytosis Anisocytosis Target Cells Ovalocytes PT with INR INR PTT (Actin FS) Sodium Potassium Chloride Carbon Dioxide Anion Gap BUN Creatinine Est GFR (CKD-EPI)AfAm Est GFR (CKD-EPI)NonAf Random Glucose Lactic Acid Calcium Iron TIBC Iron Saturation Unsaturated IBC Total Bilirubin AST ALT Alkaline Phosphatase Troponin I Total Protein Albumin Stool Occult Blood Influenza A (Rapid) Influenza B (Rapid) Blood Type O POSITIVE O POSITIVE Antibody Screen Negative Negative Crossmatch See Detail S1 S2 RRR Lungs decreased breath sounds Abd- soft, obese,NT Trace edema PLAN IV fluids Keep her NPO IV antibiotics Surgical eval appreciated--> no surgical interventions at this time ID eval noted pain control Noted high fever-- will hold off 2 nd unit PRBC-- recheck CBC no active bleeding Problem List - Problems (1) Appendicitis Code(s): K37 - UNSPECIFIED APPENDICITIS (2) Cecitis Code(s): K52.9 - NONINFECTIVE GASTROENTERITIS AND COLITIS, UNSPECIFIED (3) Weakness Code(s): R53.1 - WEAKNESS (4) Anemia Code(s): D64.9 - ANEMIA, UNSPECIFIED (5) Hypertension Code(s): I10 - ESSENTIAL (PRIMARY) HYPERTENSION Qualifiers: Hypertension type: essential hypertension Qualified Code(s): I10 - Essential (primary) hypertension (6) Parkinson disease Code(s): G20 - PARKINSON'S DISEASE
--- NOTE | 2019-03-29 11:46 | PN ---
Progress Note (short form) - Note Progress Note: ID CONSULT DICTATED RLQ INFLAMMATORY PROCESS ? APPENDICITIS/ APPENDICEAL ABSCESS FEVER/ LEUKOCYTOSIS R/O SEPSIS ANEMIA AWAIT C/S SURGICAL EVALUATION EMPIRIC ZOSYN/FLAGYL
--- NOTE | 2019-03-29 11:55 | CONSULT ---
- Consultation REQUESTING PROVIDER: CONSULT REQUEST: We have been asked to surgically evaluate this patient for RLQ collection, possible appendicitis vs cecitis PCP:Ashutosh Winston HISTORY OF PRESENT ILLNESS: 68yo F h/o advance parkinsons disease, presented to the ED for complaints of increased lethargy and weakness. Pt lethargic at bedside, so answered most of the questions. Pt denies any abd pain. Denies n/v, diarrhrea. Pt suffers from chronic constipation, and has been constipated recently. Pt has had multiple abd hernia repairs. Denies other abd surgeries. PMHx: Parkinsons Home Medications Medication Instructions Recorded Sertraline HCl [Zoloft -] 50 mg PO DAILY tablet 10/24/14 Gabapentin [Neurontin -] 400 mg PO TID 11/03/14 Carbidopa/Levodopa *Cr* 25/100 1 combo PO QID 12/13/14 [Sinemet *Cr* 25/100 -] Aspirin Coated [Ecotrin -] 81 mg PO DAILY #30 tablet.ec 01/26/16 Cephalexin Monohydrate [Keflex -] 500 mg PO Q6H #40 capsule 11/11/16 Allergies Allergy/AdvReac Type Severity Reaction Status Date / Time iodine [Iodine] Allergy Unknown Rash Verified 03/28/19 18:00 PHYSICAL EXAM: GENERAL: Awake, lethargic, and fully oriented, in no acute distress. HEAD: Normal with no signs of trauma. EYES: PERRL, sclera anicteric, conjunctiva clear. NECK: Normal ROM, LUNGS: breathing comfortably, No accessory muscle use. ABDOMEN: Soft, nontender, no guarding, no rebound, no masses. No organomegaly. Ventral wall deformity around umbilicus NEUROLOGICAL: Normal speech, gait not observed. PSYCH: Cooperative. Good eye contact. Appropriate mood and affect. SKIN: Warm, dry, normal turgor, no rashes or lesions noted. Vital Signs Temperature 98.4 F 03/29/19 04:30 Pulse Rate 88 03/29/19 04:30 Respiratory Rate 18 03/29/19 06:06 Blood Pressure 111/67 03/29/19 04:30 O2 Sat by Pulse Oximetry (%) 97 03/29/19 06:06 Lab Results WBC 15.6 K/mm3 (4.0-10.0) H 03/29/19 01:07 RBC 3.44 M/mm3 (3.60-5.2) L 03/29/19 01:07 Hgb 6.9 GM/dL (10.7-15.3) L* 03/29/19 01:07 Hct 22.0 % (32.4-45.2) L 03/29/19 01:07 MCV 64.0 fl (80-96) L 03/29/19 01:07 MCHC 31.4 g/dl (32.0-36.0) L 03/29/19 01:07 RDW 14.8 % (11.6-15.6) 03/29/19 01:07 Plt Count 565 K/MM3 (134-434) H 03/29/19 01:07 Sodium 142 mmol/L (136-145) 03/28/19 18:30 Potassium 4.9 mmol/L (3.5-5.1) 03/28/19 18:30 Chloride 108 mmol/L (98-107) H 03/28/19 18:30 Carbon Dioxide 29 mmol/L (21-32) 03/28/19 18:30 Anion Gap 5 MMOL/L (8-16) L 03/28/19 18:30 BUN 34.7 mg/dL (7-18) H 03/28/19 18:30 Creatinine 0.8 mg/dL (0.55-1.3) 03/28/19 18:30 Random Glucose 103 mg/dL (74-106) 03/28/19 18:30 Calcium 8.4 mg/dL (8.5-10.1) L 03/28/19 18:30 Blood Type O POSITIVE 03/29/19 01:07 Antibody Screen Negative 03/29/19 01:07 INR 1.36 (0.83-1.09) H 03/28/19 20:48 CT abdomen preliminary read noting Severe L3 compression fracture, of uncertain age. Mild T11 fracture, probably old. Focal inflammation / infection seen at right lower quadrant, including cecum and adjacent soft tissues. Compatible with cecitis. Appendix is not visualized separately, and appendicitis cannot be excluded (this may be secondary to cecal inflammation). No obstruction seen. Small air bubbles seen in the area of inflammation may be due to volume averaging artifact, abscess / infection, or microperforation. Problem List - Problems (1) Cecitis Assessment/Plan: Plan -will advise conservative treatment for now of IV abx, NPO, and IV fluids -serial abd exams -dvt and GI ppx Pt seen and discussed with Dr. Britt who agrees with plan. Code(s): K52.9 - NONINFECTIVE GASTROENTERITIS AND COLITIS, UNSPECIFIED Visit type - Case Type Case Type: ED Admission - Emergency Emergency Visit: Yes ED Registration Date: 03/29/19 Care time: The patient presented to the Emergency Department on the above date and was hospitalized for further evaluation of their emergent condition. - New patient This patient is new to me today: Yes Date on this admission: 03/29/19 - Critical Care Critical Care patient: No
--- NOTE | 2019-03-29 12:37 | CONS ---
INFECTIOUS DISEASE CONSULTATION DATE OF CONSULTATION: DATE OF DICTATION: 03/29/2019 HISTORY: The patient is a 68-year-old female who is evaluated for sepsis. History was obtained from the chart as she did not give a reliable history. She was brought in by her family members with a 3-day history of worsening generalized weakness, cough, and decreased oral intake. She had also complained of some intermittent right lower quadrant abdominal pain. She was evaluated in the emergency room where she was noted to have fever 100.5 and a white blood cell count of 18,000. She was also noted to be anemic with a hemoglobin of 7.4. CAT scan of the abdomen and pelvis was performed. There was evidence of atelectasis at the lung bases as well as a right lower quadrant inflammatory mass consistent with early abscess formation. The etiology of the inflammation was not clear. The appendix was not visualized. She was empirically treated with Zosyn. At the present time, she is awake; however, she does not offer any additional history. PAST MEDICAL HISTORY: Positive for hypertension, parkinsonism. PAST SURGICAL HISTORY: Status post hernia repair, bilateral total knee replacements, history of lower abdominal wall hernia repair with mesh, left shoulder replacement. ALLERGIES: IODINE. MEDICATIONS: At the present time include Zosyn, albuterol, carbidopa, Neurontin, Protonix. SOCIAL HISTORY: She resides at home. She is nonambulatory at baseline. She is a nonsmoker. SYSTEMS REVIEW: Neurologic: No loss of consciousness, seizure activity, focal weakness. Cardiac: Negative chest pain or palpitations. Respiratory: Negative cough or sputum production. Gastrointestinal: As per HPI. Genitourinary: Negative for urinary tract infection. LABORATORY DATA: White count on admission 18.8, presently 15.6, hemoglobin 6.9, platelets 565, creatinine 0.8. Blood cultures are pending. Flu swab negative. PHYSICAL EXAMINATION: General: She is awake. She is lethargic appearing. Vital Signs: Temperature 98.4, maximum temperature 100.5, blood pressure 111/67, pulse 88 regular, respirations 18 per minute. HEENT: Sclerae anicteric. Heart: Sounds S1, S2. Lungs: Diminished breath sounds bilaterally. Abdomen: Obese. Positive bowel sounds. No tenderness elicited. No right lower quadrant tenderness to palpation. No rebound or rigidity. Extremities: Negative for edema. IMPRESSION: 1. Right lower quadrant inflammatory process, possible acute appendicitis/appendiceal abscess. 2. Rule out terminal ileum pathology secondary to inflammatory bowel disease, diverticulitis, or neoplasm. 3. Fever, leukocytosis, rule out sepsis. 4. Anemia. PLAN: Await sepsis workup. Surgical evaluation. Empiric antibiotic coverage bowel al with Zosyn and Flagyl. We will follow. Thank you for the kind referral. ANGELA LANGSTON M.D. [id number]
[2019-03-29 12:41] LABS: BASO % 0.2 % (0-2.0); EOS % 0.8 % (0-4.5); HEMATOCRIT 24.6 % (32.4-45.2); HEMOGLOBIN 7.9 GM/dL (10.7-15.3); LYMPH % 14.3 % (8-40); MCH 21.4 pg (25.7-33.7); MCHC 32.1 g/dl (32.0-36.0); MEAN CELL VOLUME 66.8 fl (80-96); MEAN PLT VOLUME 8.2 fl (7.5-11.1); MONO % 4.9 % (3.8-10.2); NEUT % 79.8 % (42.8-82.8); PLATELET COUNT 573 K/MM3 (134-434); RBC 3.68 M/mm3 (3.60-5.2); RDW 16.6 % (11.6-15.6); RETICULOCYTES 1.36 % (0.5-1.5); WHITE BLOOD COUNT 12.8 K/mm3 (4.0-10.0)
[2019-03-29 13:14] LABS: ALBUMIN 2.2 g/dl (3.4-5.0); BILIRUBIN,TOTAL 0.7 mg/dL (0.2-1); BLOOD UREA NITROGEN 33.1 mg/dL (7-18); CALCIUM 8.3 mg/dL (8.5-10.1); CREATININE 0.6 mg/dL (0.55-1.3); MAGNESIUM 2.6 mg/dL (1.8-2.4); POTASSIUM 4.4 mmol/L (3.5-5.1); TOT PROT 5.9 g/dl (6.4-8.2)
[2019-03-29 13:22] LABS: INR 1.35 (0.83-1.09)
[2019-03-29 13:25] LABS: ACTIVATED PTT 29.7 SECONDS (25.2-36.5)
[2019-03-29] MEDS ORDERED: DEXTROSE 5%-WATER - 50 ML IVPB ONE (16:59)
[2019-03-29] MEDS ORDERED: PIPERACILLIN/TAZOBACTAM 3.375 GM VIAL IVPB ONE (16:59)
[2019-03-29] MEDS: PIPERACILLIN/TAZOB 3.375 GM 3.375 GM in DEXTROSE 5%-WATER - 50 ML IVPB SCH (17:09)
[2019-03-29] MEDS ORDERED: NEBIVOLOL 5 MG TABLET (FP) PO ONE (21:17)
[2019-03-30] MEDS ORDERED: PIPERACILLIN/TAZOBACTAM 3.375 GM VIAL IVPB ONE ×3 (02:02→14:46)
[2019-03-30] MEDS ORDERED: DEXTROSE 5%-WATER - 50 ML IVPB ONE ×3 (02:03→14:46)
[2019-03-30] MEDS: PIPERACILLIN/TAZOB 3.375 GM 3.375 GM in DEXTROSE 5%-WATER - 50 ML IVPB SCH ×3 (03:31→17:04)
[2019-03-30] MEDS: SODIUM CHLORIDE 1,000 ML IV SCH (03:31)
--- NOTE | 2019-03-30 04:05 | CONSULT ---
Consult - text type - Consultation Consultation Note: 68 yr old with Hx. of Parkinson's prsenting with abdominal pain and a Ct scan showing an inflammatory mass in the RLQ. Etiology include appendicittis, right side diverticulitis and mesh erosion from previous hernia repair Continue conservative management with Antibiotics as she appears to be improving and WBC decreasing. Repeat CT scan in 3 /4 days to evaluate whether a drainable collection develops.
[2019-03-30] MEDS: GABAPENTIN 400 MG CAPSULE PO SCH ×3 (05:21→21:17)
[2019-03-30] MEDS: ACETAMINOPHEN 1000 MG/100 ML VIAL (NON FORMULARY) IVPB PRN (05:31)
[2019-03-30 07:46] LABS: HEMATOCRIT 24.6 % (32.4-45.2); HEMOGLOBIN 7.9 GM/dL (10.7-15.3); MCH 21.3 pg (25.7-33.7); MEAN CELL VOLUME 66.6 fl (80-96); PLATELET COUNT 553 K/MM3 (134-434); RDW 16.5 % (11.6-15.6); WHITE BLOOD COUNT 11.5 K/mm3 (4.0-10.0)
[2019-03-30 08:18] LABS: ALBUMIN 2.1 g/dl (3.4-5.0); BILIRUBIN,TOTAL 0.8 mg/dL (0.2-1); BLOOD UREA NITROGEN 23.6 mg/dL (7-18); CALCIUM 8.3 mg/dL (8.5-10.1); CREATININE 0.6 mg/dL (0.55-1.3); POTASSIUM 4.3 mmol/L (3.5-5.1); TOT PROT 5.8 g/dl (6.4-8.2)
[2019-03-30] MEDS ORDERED: PIPERACILLIN/TAZOB 4.5 GM 4.5 GM in DEXTROSE 5%-WATER 100 ML IVPB SCH (09:00)
[2019-03-30] MEDS: NEBIVOLOL 5 MG TABLET (FP) PO SCH (09:53)
[2019-03-30] MEDS: SERTRALINE HCL 50 MG TABLET (FP) PO SCH (09:53)
[2019-03-30] MEDS: PANTOPRAZOLE SODIUM 40 MG VIAL IVPUSH SCH (09:53)
--- NOTE | 2019-03-30 10:11 | PN ---
Progress Note (short form) - Note Progress Note: Pt with fever overnight to 100.8 and 100.7, treated with IV tylenol. Vital Signs Period Temp Pulse Resp BP Sys/Villegas Pulse Ox Last 24 Hr 97.6 F-101.8 F 84-91 18-18 131-162/75-84 94-97 GEN: lethargic but arousable ABD: soft, non-distended, non-tender CBC, BMP 03/30/19 07:18 03/30/19 07:18 A/P: [address] scan showing an inflammatory mass in the RLQ. Etiology unclear. PLan is for continued conservative treatment with IV abx-on zosyn and flagyl. WBC improved, although she is having fevers Plan is for repeat CT scan later this week if her clinical course worsens, continued temps then repeat CT scan may need to be completed sooner. D/w Dr. Martinez, surgery to follow the patient. Continue npo/IV hydration
--- NOTE | 2019-03-30 11:30 | PN ---
Progress Note (short form) - Note Progress Note: no pain she is comfortable but has high fever Vital Signs - 24 hr 03/29/19 03/29/19 03/29/19 16:09 16:42 21:00 Temperature 98.4 F Pulse Rate 89 Respiratory 18 18 Rate Blood Pressure 144/75 O2 Sat by Pulse 94 L 97 Oximetry (%) 03/30/19 03/30/19 03/30/19 02:23 05:46 07:11 Temperature 97.6 F 101.8 F H 100.7 F H Pulse Rate 91 H 90 Respiratory 18 18 Rate Blood Pressure 162/84 157/84 O2 Sat by Pulse Oximetry (%) 03/30/19 03/30/19 03/30/19 07:59 09:00 11:08 Temperature 99.0 F 99.7 F H Pulse Rate 84 Respiratory 18 Rate Blood Pressure 142/75 O2 Sat by Pulse 94 L Oximetry (%) 03/30/19 03/30/19 11:55 15:03 Temperature 100.3 F H 98.5 F Pulse Rate 72 Respiratory 18 Rate Blood Pressure 146/78 O2 Sat by Pulse Oximetry (%) Current Medications Generic Name Dose Route Start Last Admin Trade Name Freq PRN Reason Stop Dose Admin Acetaminophen 1,000 mg 03/30/19 14:37 Tylenol - PO Q6H PRN PAIN LEVEL 6-10 Carbidopa/Levodopa 1 combo 03/29/19 10:00 03/30/19 13:43 Sinemet *Cr* 25/100 - PO 1 combo QID [facility] Administration Gabapentin 400 mg 03/29/19 06:00 03/30/19 13:43 Neurontin - PO Not Given TID [facility] Piperacillin Sod/Tazobactam 50 mls @ 100 mls/hr 03/29/19 18:00 03/30/19 09:45 Sod 3.375 gm/ Dextrose IVPB 100 mls/hr Q8H-IV [facility] Administration Protocol Metronidazole 500 mg in 100 mls @ 100 mls/hr 03/29/19 12:00 03/30/19 10:46 Flagyl 500mg Premixed Ivpb - IVPB 100 mls/hr Q8H-IV [facility] Administration Potassium Chloride/Dextrose/Sod Cl 20 meq in 1,000 mls @ 75 mls/hr 03/30/19 12 :30 01/22/20 13:41 D5-1/2ns+20 Meq Kcl - IV 75 mls/hr ASDIR [facility] Administration Ibuprofen 600 mg 03/30/19 12:25 Caldolor Injection - IVPB Q6H PRN FEVER Nebivolol 5 mg 03/30/19 10:00 03/30/19 09:53 Bystolic - PO 5 mg DAILY [facility] Administration Pantoprazole Sodium 40 mg 03/29/19 10:00 03/30/19 09:53 Protonix Iv IVPUSH 40 mg DAILY [facility] Administration Laboratory Results - last 24 hr 03/29/19 03/30/19 03/30/19 12:10 07:18 07:18 WBC 11.5 H RBC 3.70 Hgb 7.9 L Hct 24.6 L MCV 66.6 L MCH 21.3 L MCHC 32.0 RDW 16.5 H Plt Count 553 H MPV 8.0 Sodium 142 Potassium 4.3 Chloride 110 H Carbon Dioxide 26 Anion Gap 6 L BUN 23.6 H Creatinine 0.6 Est GFR (CKD-EPI)AfAm 107.79 Est GFR (CKD-EPI)NonAf 93.00 Random Glucose 91 Calcium 8.3 L Transferrin 121 L Total Bilirubin 0.8 AST 34 ALT 27 Alkaline Phosphatase 74 Total Protein 5.8 L Albumin 2.1 L S1 S2 RRR Lungs decreased breath sounds Abd- soft, obese,NT Trace edema PLAN IV fluids Keep her NPO IV antibiotics Surgical eval appreciated--> no surgical interventions at this time ID eval noted pain control Noted high fever-- will hold off 2 nd unit PRBC-- recheck CBC no active bleeding add motrin iv Problem List - Problems (1) Appendicitis Code(s): K37 - UNSPECIFIED APPENDICITIS (2) Cecitis Code(s): K52.9 - NONINFECTIVE GASTROENTERITIS AND COLITIS, UNSPECIFIED (3) Weakness Code(s): R53.1 - WEAKNESS (4) Anemia Code(s): D64.9 - ANEMIA, UNSPECIFIED (5) Hypertension Code(s): I10 - ESSENTIAL (PRIMARY) HYPERTENSION Qualifiers: Hypertension type: essential hypertension Qualified Code(s): I10 - Essential (primary) hypertension (6) Parkinson disease Code(s): G20 - PARKINSON'S DISEASE
[2019-03-30] MEDS: D5-1/2NS+20 MEQ KCL - 20 MEQ/1,000 ML INFUS.BAG IV SCH (13:41)
[2019-03-30 16:02] VITALS: BMI 29.1
[2019-03-30] MEDS: ACETAMINOPHEN 500 MG TABLET (FP) PO PRN (17:11)
[2019-03-30] MEDS ORDERED: PT OWN MED DRAWER 7, Y5N ONE (17:36)
[2019-03-30 18:17] LABS: PH,URINE 6.5 (5.0-8.0); URINE APPEARANCE CLOUDY; URINE BILIRUBIN NEGATIVE (NEGATIVE); URINE COLOR DK YELLOW; URINE GLUCOSE (UA) NEGATIVE (NEGATIVE); URINE KETONE TRACE (NEGATIVE); URINE LEUK ESTERASE NEGATIVE (NEGATIVE); URINE NITRITE NEGATIVE (NEGATIVE); URINE PROTEIN NEGATIVE (NEGATIVE)
--- NOTE | 2019-03-30 22:18 | PN ---
Progress Note, Physician - Current Medication List Current Medications: Active Medications Acetaminophen (Tylenol -) 1,000 mg PO Q6H PRN PRN Reason: PAIN LEVEL 6-10 Last Admin: 03/30/19 17:11 Dose: 1,000 mg Carbidopa/Levodopa (Sinemet *Cr* 25/100 -) 1 combo PO QID [facility] Last Admin: 03/30/19 21:17 Dose: 1 combo Gabapentin (Neurontin -) 400 mg PO TID [facility] Last Admin: 03/30/19 21:17 Dose: 400 mg Piperacillin Sod/Tazobactam (Sod 3.375 gm/ Dextrose) 50 mls @ 100 mls/hr IVPB Q8H-IV [facility]; Protocol Last Admin: 03/30/19 17:04 Dose: 100 mls/hr Metronidazole (Flagyl 500mg Premixed Ivpb -) 500 mg in 100 mls @ 100 mls/hr IVPB Q8H-IV [facility] Last Admin: 03/30/19 18:18 Dose: 100 mls/hr Potassium Chloride/Dextrose/Sod Cl (D5-1/2ns+20 Meq Kcl -) 20 meq in 1,000 mls @ 75 mls/hr IV ASDIR [facility] Last Admin: 03/30/19 13:41 Dose: 75 mls/hr Ibuprofen (Caldolor Injection -) 600 mg IVPB Q6H PRN PRN Reason: FEVER Nebivolol (Bystolic -) 5 mg PO DAILY [facility] Last Admin: 03/30/19 09:53 Dose: 5 mg Pantoprazole Sodium (Protonix Iv) 40 mg IVPUSH DAILY [facility] Last Admin: 03/30/19 09:53 Dose: 40 mg - Objective Vital Signs: Vital Signs Temperature 99.0 F 03/30/19 21:18 Pulse Rate 77 03/30/19 21:18 Respiratory Rate 18 03/30/19 21:18 Blood Pressure 144/71 03/30/19 21:18 O2 Sat by Pulse Oximetry (%) 94 L 03/30/19 20:45 Labs: CBC, BMP 03/30/19 07:18 03/30/19 07:18 INR, PTT INR 1.35 (0.83-1.09) H 03/29/19 12:10
[2019-03-31] MEDS ORDERED: DEXTROSE 5%-WATER - 50 ML IVPB ONE ×3 (00:25→17:40)
[2019-03-31] MEDS ORDERED: PIPERACILLIN/TAZOBACTAM 3.375 GM VIAL IVPB ONE ×3 (00:25→17:40)
[2019-03-31] MEDS: PIPERACILLIN/TAZOB 3.375 GM 3.375 GM in DEXTROSE 5%-WATER - 50 ML IVPB SCH ×3 (01:16→17:41)
[2019-03-31] MEDS: GABAPENTIN 400 MG CAPSULE PO SCH ×3 (05:51→21:41)
[2019-03-31] MEDS: D5-1/2NS+20 MEQ KCL - 20 MEQ/1,000 ML INFUS.BAG IV SCH ×3 (05:51→18:32)
[2019-03-31] MEDS: IBUPROFEN 800 MG/8 ML IJ IVPB PRN (06:20)
[2019-03-31 08:15] LABS: BASO % 0.5 % (0-2.0); EOS % 2.6 % (0-4.5); HEMATOCRIT 26.3 % (32.4-45.2); HEMOGLOBIN 8.6 GM/dL (10.7-15.3); LYMPH % 15.9 % (8-40); MCH 21.6 pg (25.7-33.7); MCHC 32.6 g/dl (32.0-36.0); MEAN CELL VOLUME 66.5 fl (80-96); MEAN PLT VOLUME 8.4 fl (7.5-11.1); MONO % 4.7 % (3.8-10.2); NEUT % 76.3 % (42.8-82.8); PLATELET COUNT 545 K/MM3 (134-434); RBC 3.96 M/mm3 (3.60-5.2); RDW 16.2 % (11.6-15.6)
[2019-03-31 09:01] LABS: ALBUMIN 2.3 g/dl (3.4-5.0); BILIRUBIN,TOTAL 0.6 mg/dL (0.2-1); BLOOD UREA NITROGEN 18.1 mg/dL (7-18); CALCIUM 8.1 mg/dL (8.5-10.1); CREATININE 0.5 mg/dL (0.55-1.3); POTASSIUM 4.1 mmol/L (3.5-5.1)
[2019-03-31] MEDS ORDERED: PT OWN MED DRAWER 7, Y5N ONE (09:07)
[2019-03-31] MEDS: PANTOPRAZOLE SODIUM 40 MG VIAL IVPUSH SCH (09:53)
[2019-03-31] MEDS: NEBIVOLOL 5 MG TABLET (FP) PO SCH (09:53)
--- NOTE | 2019-03-31 10:56 | PN ---
Progress Note (short form) - Note Progress Note: has pain in right lower quadrant - slight has high fever Vital Signs - 24 hr 03/30/19 03/30/19 03/30/19 11:08 11:55 13:50 Temperature 99.7 F H 100.3 F H 99.7 F H Pulse Rate Respiratory Rate Blood Pressure O2 Sat by Pulse Oximetry (%) 03/30/19 03/30/19 03/30/19 15:03 18:00 20:45 Temperature 98.5 F 98.8 F Pulse Rate 72 70 Respiratory 18 18 Rate Blood Pressure 146/78 146/77 O2 Sat by Pulse 94 L Oximetry (%) 03/30/19 03/31/19 21:18 06:00 Temperature 99.0 F 101.0 F H Pulse Rate 77 88 Respiratory 18 18 Rate Blood Pressure 144/71 152/86 O2 Sat by Pulse Oximetry (%) Current Medications Generic Name Dose Route Start Last Admin Trade Name Freq PRN Reason Stop Dose Admin Acetaminophen 1,000 mg 03/30/19 14:37 03/30/19 17:11 Tylenol - PO 1,000 mg Q6H PRN Administration PAIN LEVEL 6-10 Carbidopa/Levodopa 1 combo 03/31/19 10:00 03/31/19 09:54 Sinemet *Cr* 25/100 - PO 1 combo QID [facility] Administration Gabapentin 400 mg 03/31/19 06:00 03/31/19 05:51 Neurontin - PO 400 mg TID [facility] Administration Metronidazole 500 mg in 100 mls @ 100 mls/hr 03/29/19 12:00 03/31/19 10:39 Flagyl 500mg Premixed Ivpb - IVPB 100 mls/hr Q8H-IV [facility] Administration Potassium Chloride/Dextrose/Sod Cl 20 meq in 1,000 mls @ 75 mls/hr 03/30/19 12 :30 03/31/19 05:51 D5-1/2ns+20 Meq Kcl - IV 75 mls/hr ASDIR [facility] Administration Piperacillin Sod/Tazobactam 50 mls @ 100 mls/hr 03/31/19 10:00 03/31/19 09:52 Sod 3.375 gm/ Dextrose IVPB 100 mls/hr Q8H-IV [facility] Administration Protocol Ibuprofen 600 mg 03/30/19 12:25 03/31/19 06:20 Caldolor Injection - IVPB 600 mg Q6H PRN Administration FEVER Nebivolol 5 mg 03/30/19 10:00 03/31/19 09:53 Bystolic - PO 5 mg DAILY [facility] Administration Pantoprazole Sodium 40 mg 03/31/19 10:00 03/31/19 09:53 Protonix Iv IVPUSH 40 mg DAILY [facility] Administration Laboratory Results - last 24 hr 03/30/19 03/31/19 03/31/19 13:15 07:23 07:23 WBC 11.0 H RBC 3.96 Hgb 8.6 L Hct 26.3 L MCV 66.5 L MCH 21.6 L MCHC 32.6 RDW 16.2 H Plt Count 545 H MPV 8.4 Absolute Neuts (auto) 8.4 H Neutrophils % 76.3 Lymphocytes % 15.9 Monocytes % 4.7 Eosinophils % 2.6 D Basophils % 0.5 Nucleated RBC % 0 Sodium 139 Potassium 4.1 Chloride 107 Carbon Dioxide 24 Anion Gap 8 BUN 18.1 H Creatinine 0.5 L Est GFR (CKD-EPI)AfAm 114.45 Est GFR (CKD-EPI)NonAf 98.75 Random Glucose 102 Calcium 8.1 L Total Bilirubin 0.6 AST 23 ALT 39 Alkaline Phosphatase 73 Total Protein 6.0 L Albumin 2.3 L Urine Color Dk yellow Urine Appearance Cloudy Urine pH 6.5 Ur Specific [place] 1.034 Urine Protein Negative Urine Glucose (UA) Negative Urine Ketones Trace H Urine Blood Negative Urine Nitrite Negative Urine Bilirubin Negative Urine Urobilinogen 2.0 H Ur Leukocyte Esterase Negative S1 S2 RRR Lungs decreased breath sounds Abd- soft, obese,tenderness in RLQ Trace edema PLAN IV fluids Keep her NPO IV antibiotics pain control will order CT abd/pelvis today Surgical follow up Problem List - Problems (1) Appendicitis Code(s): K37 - UNSPECIFIED APPENDICITIS (2) Cecitis Code(s): K52.9 - NONINFECTIVE GASTROENTERITIS AND COLITIS, UNSPECIFIED (3) Weakness Code(s): R53.1 - WEAKNESS (4) Anemia Code(s): D64.9 - ANEMIA, UNSPECIFIED (5) Hypertension Code(s): I10 - ESSENTIAL (PRIMARY) HYPERTENSION Qualifiers: Hypertension type: essential hypertension Qualified Code(s): I10 - Essential (primary) hypertension (6) Parkinson disease Code(s): G20 - PARKINSON'S DISEASE
--- NOTE | 2019-03-31 11:55 | PN ---
Progress Note (short form) - Note Progress Note: Pt with fever overnight to 100.3 and 101 this am. Vital Signs Period Temp Pulse Resp BP Sys/Villegas Pulse Ox Last 24 Hr 98.5 F-101.0 F 70-88 18-18 144-152/71-86 94 GEN: pt more alert today, follows commands ABD: soft, non-distended, non-tender CBC, BMP 03/31/19 07:23 03/31/19 07:23 A/P: [address] scan showing an inflammatory mass in the RLQ. Etiology unclear. PLan is for continued conservative treatment with IV abx-on zosyn and flagyl. WBC stable although she is having fevers Plan is for repeat CT scan most likely tomorrow to eval if pathology in the RLQ more of a drainage collection/or if there is improvment D/w Dr. Martinez, surgery to follow the patient. Continue npo/IV hydration
--- NOTE | 2019-03-31 22:40 | PN ---
Progress Note, Physician Chief Complaint: MUCH MORE AWAKE AND ALERT RESPONSIVE TEMPS DOWN WBC IMPROVED CULTURES NO GROWTH SURGICAL EVALUATION APPRECIATED - Current Medication List Current Medications: Active Medications Acetaminophen (Tylenol -) 1,000 mg PO Q6H PRN PRN Reason: PAIN LEVEL 6-10 Last Admin: 03/30/19 17:11 Dose: 1,000 mg Carbidopa/Levodopa (Sinemet *Cr* 25/100 -) 1 combo PO QID [facility] Last Admin: 03/31/19 21:41 Dose: 1 combo Gabapentin (Neurontin -) 400 mg PO TID [facility] Last Admin: 03/31/19 21:41 Dose: 400 mg Metronidazole (Flagyl 500mg Premixed Ivpb -) 500 mg in 100 mls @ 100 mls/hr IVPB Q8H-IV [facility] Last Admin: 03/31/19 18:43 Dose: 100 mls/hr Piperacillin Sod/Tazobactam (Sod 3.375 gm/ Dextrose) 50 mls @ 100 mls/hr IVPB Q8H-IV [facility]; Protocol Last Admin: 03/31/19 17:41 Dose: 100 mls/hr Potassium Chloride/Dextrose/Sod Cl (D5-1/2ns+20 Meq Kcl -) 20 meq in 1,000 mls @ 60 mls/hr IV ASDIR [facility] Last Admin: 03/31/19 18:32 Dose: Not Given Ibuprofen (Caldolor Injection -) 600 mg IVPB Q6H PRN PRN Reason: FEVER Last Admin: 03/31/19 06:20 Dose: 600 mg Nebivolol (Bystolic -) 5 mg PO DAILY [facility] Last Admin: 03/31/19 09:53 Dose: 5 mg Pantoprazole Sodium (Protonix Iv) 40 mg IVPUSH DAILY [facility] Last Admin: 03/31/19 09:53 Dose: 40 mg - Objective Vital Signs: Vital Signs Temperature 99.0 F 03/31/19 21:44 Pulse Rate 80 03/31/19 21:44 Respiratory Rate 18 03/31/19 21:44 Blood Pressure 140/77 03/31/19 21:44 O2 Sat by Pulse Oximetry (%) 95 03/31/19 21:00 Constitutional: Yes: No Distress Eyes: Yes: Conjunctiva Clear Cardiovascular: Yes: Regular Rate and Rhythm, S1, S2 Respiratory: Yes: Diminished Gastrointestinal: Yes: Normal Bowel Sounds, Soft, Other (NO TENDERNESS ELICITED) Labs: CBC, BMP 03/31/19 07:23 03/31/19 07:23 INR, PTT INR 1.35 (0.83-1.09) H 03/29/19 12:10 Assessment/Plan RLQ INFLAMMATORY PROCESS ? ETIOLOGY FEVER/ LEUKOCYTOSIS IMPROVED CONTINUE EMPIRIC ZOSYN/ FLAGYL FOR FOLLOW UP CT SCAN DISCUSSED WITH AT BEDSIDE
[2019-04-01] MEDS ORDERED: PIPERACILLIN/TAZOBACTAM 3.375 GM VIAL IVPB ONE ×3 (00:40→17:29)
[2019-04-01] MEDS ORDERED: DEXTROSE 5%-WATER - 50 ML IVPB ONE ×3 (00:40→17:29)
[2019-04-01] MEDS: PIPERACILLIN/TAZOB 3.375 GM 3.375 GM in DEXTROSE 5%-WATER - 50 ML IVPB SCH ×3 (01:53→17:53)
[2019-04-01] MEDS: GABAPENTIN 400 MG CAPSULE PO SCH ×3 (06:17→22:12)
--- NOTE | 2019-04-01 09:17 | PN ---
Progress Note (short form) - Note Progress Note: Denies any pain Continues to have temp spikes Exam nontender WBC decreasing A/P RLQ inflammatory process Recommend continue antibiotics and repeat CT scan
[2019-04-01] MEDS: PANTOPRAZOLE SODIUM 40 MG VIAL IVPUSH SCH (10:25)
[2019-04-01] MEDS: NEBIVOLOL 5 MG TABLET (FP) PO SCH (10:26)
[2019-04-01] MEDS: D5-1/2NS+20 MEQ KCL - 20 MEQ/1,000 ML INFUS.BAG IV SCH (10:40)
--- NOTE | 2019-04-01 12:54 | PN ---
Progress Note (short form) - Note Progress Note: pt seen/ examined chart is reviewed awake/ comfortable feels better decreased pain ct scan noted - Son/ at bedside Vital Signs Temp 98.4 F 04/01/19 10:00 Pulse 82 04/01/19 10:00 Resp 18 04/01/19 10:00 BP 152/88 04/01/19 10:00 Pulse Ox 95 03/31/19 21:00 Intake & Output 03/31/19 04/01/19 04/01/19 23:59 11:59 23:59 Intake Total 975 Output Total 600 300 Balance 375 -300 Intake: IV 675 D5-1/2NS+20 MEQ KCL - 20 675 meq In 1,000 ml @ 60 mls/ hr IV ASDIR [facility] Rx#: [id number] IVPB 300 Output: Urine 600 300 Bernstein 600 300 Other: Voiding Method Indwelling Catheter Indwelling Catheter Bowel Movement Yes Yes: 1larger # Bowel Movements 1 Active Medications Acetaminophen (Tylenol -) 1,000 mg PO Q6H PRN PRN Reason: PAIN LEVEL 6-10 Last Admin: 03/30/19 17:11 Dose: 1,000 mg Carbidopa/Levodopa (Sinemet *Cr* 25/100 -) 1 combo PO QID [facility] Last Admin: 04/01/19 10:26 Dose: 1 combo Gabapentin (Neurontin -) 400 mg PO TID [facility] Last Admin: 04/01/19 06:17 Dose: 400 mg Metronidazole (Flagyl 500mg Premixed Ivpb -) 500 mg in 100 mls @ 100 mls/hr IVPB Q8H-IV [facility] Last Admin: 04/01/19 10:25 Dose: 100 mls/hr Piperacillin Sod/Tazobactam (Sod 3.375 gm/ Dextrose) 50 mls @ 100 mls/hr IVPB Q8H-IV [facility]; Protocol Last Admin: 04/01/19 10:25 Dose: 100 mls/hr Potassium Chloride/Dextrose/Sod Cl (D5-1/2ns+20 Meq Kcl -) 20 meq in 1,000 mls @ 60 mls/hr IV ASDIR [facility] Last Admin: 04/01/19 10:40 Dose: 60 mls/hr Ibuprofen (Caldolor Injection -) 600 mg IVPB Q6H PRN PRN Reason: FEVER Last Admin: 03/31/19 06:20 Dose: 600 mg Nebivolol (Bystolic -) 5 mg PO DAILY [facility] Last Admin: 04/01/19 10:26 Dose: 5 mg Pantoprazole Sodium (Protonix Iv) 40 mg IVPUSH DAILY [facility] Last Admin: 04/01/19 10:25 Dose: 40 mg CBC, BMP 03/31/19 07:23 03/31/19 07:23 Microbiology 03/30/19 13:15 Urine Culture - Final Urine - Urine Bernstein Yeast Like Organism 03/28/19 18:30 Blood Culture - Preliminary Blood - Peripheral Venous NO GROWTH OBTAINED AFTER 72 HOURS, INCUBATION TO CONTINUE FOR 2 DAYS. 03/28/19 18:30 Blood Culture - Preliminary Blood - Peripheral Venous NO GROWTH OBTAINED AFTER 72 HOURS, INCUBATION TO CONTINUE FOR 2 DAYS. Physical Exam Awake/ cofortable S1 S2 RRR Lungs decreased breath sounds Abd- soft, obese,mild tenderness + RLQ Trace edema Awake PLAN Better Ct scan - Decreased Inflammation-- Fistula Formation IV fluids NPO IV antibiotics pain control surgery on cyanide case hardener onesimoaileen Will follow D/W pts family in detail Problem List - Problems (1) Appendicitis Code(s): K37 - UNSPECIFIED APPENDICITIS (2) Cecitis Code(s): K52.9 - NONINFECTIVE GASTROENTERITIS AND COLITIS, UNSPECIFIED (3) Weakness Code(s): R53.1 - WEAKNESS (4) Anemia Code(s): D64.9 - ANEMIA, UNSPECIFIED (5) Hypertension Code(s): I10 - ESSENTIAL (PRIMARY) HYPERTENSION Qualifiers: Hypertension type: essential hypertension Qualified Code(s): I10 - Essential (primary) hypertension (6) Parkinson disease Code(s): G20 - PARKINSON'S DISEASE
--- NOTE | 2019-04-01 18:45 | PN ---
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 SURGICAL EVALUATION APPRECIATED - Current Medication List Current Medications: Active Medications Acetaminophen (Tylenol -) 1,000 mg PO Q6H PRN PRN Reason: PAIN LEVEL 6-10 Last Admin: 03/30/19 17:11 Dose: 1,000 mg Carbidopa/Levodopa (Sinemet *Cr* 25/100 -) 1 combo PO QID [facility] Last Admin: 04/01/19 17:53 Dose: 1 combo Gabapentin (Neurontin -) 400 mg PO TID [facility] Last Admin: 04/01/19 15:16 Dose: 400 mg Metronidazole (Flagyl 500mg Premixed Ivpb -) 500 mg in 100 mls @ 100 mls/hr IVPB Q8H-IV [facility] Last Admin: 04/01/19 17:53 Dose: 100 mls/hr Piperacillin Sod/Tazobactam (Sod 3.375 gm/ Dextrose) 50 mls @ 100 mls/hr IVPB Q8H-IV [facility]; Protocol Last Admin: 04/01/19 17:53 Dose: 100 mls/hr Potassium Chloride/Dextrose/Sod Cl (D5-1/2ns+20 Meq Kcl -) 20 meq in 1,000 mls @ 60 mls/hr IV ASDIR [facility] Last Admin: 04/01/19 10:40 Dose: 60 mls/hr Ibuprofen (Caldolor Injection -) 600 mg IVPB Q6H PRN PRN Reason: FEVER Last Admin: 03/31/19 06:20 Dose: 600 mg Nebivolol (Bystolic -) 5 mg PO DAILY [facility] Last Admin: 04/01/19 10:26 Dose: 5 mg Pantoprazole Sodium (Protonix Iv) 40 mg IVPUSH DAILY [facility] Last Admin: 04/01/19 10:25 Dose: 40 mg - Objective Vital Signs: Vital Signs Temperature 98.6 F 04/01/19 14:53 Pulse Rate 82 04/01/19 14:53 Respiratory Rate 18 04/01/19 14:53 Blood Pressure 147/85 04/01/19 14:53 O2 Sat by Pulse Oximetry (%) 98 04/01/19 09:00 Constitutional: Yes: No Distress Eyes: Yes: Conjunctiva Clear Cardiovascular: Yes: Regular Rate and Rhythm, S1, S2 Respiratory: Yes: CTA Bilaterally Gastrointestinal: Yes: Normal Bowel Sounds, Soft, Abdomen, Obese, Other (NON TENDER) Labs: CBC, BMP 03/31/19 07:23 03/31/19 07:23 INR, PTT INR 1.35 (0.83-1.09) H 03/29/19 12:10 Assessment/Plan RLQ INFLAMMATORY PROCESS ? ETIOLOGY FEVER/ LEUKOCYTOSIS IMPROVED CONTINUE EMPIRIC ZOSYN/ FLAGYL
[2019-04-02] MEDS ORDERED: PIPERACILLIN/TAZOBACTAM 3.375 GM VIAL IVPB ONE ×3 (01:58→17:27)
[2019-04-02] MEDS ORDERED: DEXTROSE 5%-WATER - 50 ML IVPB ONE ×3 (01:59→17:28)
[2019-04-02] MEDS: PIPERACILLIN/TAZOB 3.375 GM 3.375 GM in DEXTROSE 5%-WATER - 50 ML IVPB SCH ×3 (02:04→17:56)
[2019-04-02] MEDS: D5-1/2NS+20 MEQ KCL - 20 MEQ/1,000 ML INFUS.BAG IV SCH ×2 (05:24→17:57)
[2019-04-02] MEDS: GABAPENTIN 400 MG CAPSULE PO SCH ×3 (06:48→21:44)
[2019-04-02 07:18] LABS: BASO % 0.8 % (0-2.0); EOS % 5.2 % (0-4.5); HEMATOCRIT 25.7 % (32.4-45.2); HEMOGLOBIN 8.3 GM/dL (10.7-15.3); LYMPH % 26.9 % (8-40); MCH 21.6 pg (25.7-33.7); MCHC 32.2 g/dl (32.0-36.0); MEAN CELL VOLUME 67.1 fl (80-96); MEAN PLT VOLUME 8.1 fl (7.5-11.1); MONO % 6.4 % (3.8-10.2); NEUT % 60.7 % (42.8-82.8); PLATELET COUNT 480 K/MM3 (134-434); RBC 3.83 M/mm3 (3.60-5.2); RDW 16.8 % (11.6-15.6); WHITE BLOOD COUNT 8.2 K/mm3 (4.0-10.0)
[2019-04-02 07:43] LABS: BLOOD UREA NITROGEN 12.1 mg/dL (7-18); CREATININE 0.5 mg/dL (0.55-1.3); POTASSIUM 3.8 mmol/L (3.5-5.1)
[2019-04-02 07:44] LABS: ALBUMIN 2.1 g/dl (3.4-5.0); BILIRUBIN,TOTAL 0.6 mg/dL (0.2-1); CALCIUM 8.3 mg/dL (8.5-10.1); TOT PROT 5.4 g/dl (6.4-8.2)
[2019-04-02] MEDS: PANTOPRAZOLE SODIUM 40 MG VIAL IVPUSH SCH (10:40)
[2019-04-02] MEDS: NEBIVOLOL 5 MG TABLET (FP) PO SCH (10:52)
--- NOTE | 2019-04-02 12:08 | PN ---
Progress Note (short form) - Note Progress Note: Pt seen/ examined comfortable afebrile wbc coming down Vital Signs Temp 98.5 F 04/02/19 06:00 Pulse 74 04/02/19 06:00 Resp 18 04/02/19 06:00 BP 142/86 04/02/19 06:00 Pulse Ox 97 04/01/19 21:00 Intake & Output 04/01/19 04/02/19 04/02/19 23:59 11:59 23:59 Intake Total 870 Output Total 800 400 Balance 70 -400 Intake: IV 720 D5-1/2NS+20 MEQ KCL - 20 720 meq In 1,000 ml @ 60 mls/ hr IV ASDIR [facility] Rx#: [id number] IVPB 150 Oral 0 Output: Urine 800 400 Bernstein 800 400 Other: Voiding Method Indwelling Catheter Indwelling Catheter Bowel Movement Yes # Bowel Movements 1 Active Medications Acetaminophen (Tylenol -) 1,000 mg PO Q6H PRN PRN Reason: PAIN LEVEL 6-10 Last Admin: 03/30/19 17:11 Dose: 1,000 mg Carbidopa/Levodopa (Sinemet *Cr* 25/100 -) 1 combo PO QID [facility] Last Admin: 04/02/19 10:53 Dose: 1 combo Gabapentin (Neurontin -) 400 mg PO TID [facility] Last Admin: 04/02/19 06:48 Dose: 400 mg Metronidazole (Flagyl 500mg Premixed Ivpb -) 500 mg in 100 mls @ 100 mls/hr IVPB Q8H-IV [facility] Last Admin: 04/02/19 10:39 Dose: 100 mls/hr Piperacillin Sod/Tazobactam (Sod 3.375 gm/ Dextrose) 50 mls @ 100 mls/hr IVPB Q8H-IV [facility]; Protocol Last Admin: 04/02/19 10:39 Dose: 100 mls/hr Potassium Chloride/Dextrose/Sod Cl (D5-1/2ns+20 Meq Kcl -) 20 meq in 1,000 mls @ 60 mls/hr IV ASDIR [facility] Last Admin: 04/02/19 05:24 Dose: 60 mls/hr Ibuprofen (Caldolor Injection -) 600 mg IVPB Q6H PRN PRN Reason: FEVER Last Admin: 03/31/19 06:20 Dose: 600 mg Nebivolol (Bystolic -) 5 mg PO DAILY [facility] Last Admin: 04/02/19 10:52 Dose: 5 mg Pantoprazole Sodium (Protonix Iv) 40 mg IVPUSH DAILY [facility] Last Admin: 04/02/19 10:40 Dose: 40 mg CBC, BMP 04/02/19 05:20 04/02/19 05:20 Microbiology 03/28/19 18:30 Blood Culture - Preliminary Blood - Peripheral Venous NO GROWTH OBTAINED AFTER 96 HOURS, INCUBATION TO CONTINUE FOR 1 DAYS. 03/28/19 18:30 Blood Culture - Preliminary Blood - Peripheral Venous NO GROWTH OBTAINED AFTER 96 HOURS, INCUBATION TO CONTINUE FOR 1 DAYS. 03/30/19 13:15 Urine Culture - Final Urine - Urine Bernstein Yeast Like Organism Physical Exam Awake/ comfortable S1 S2 RRR Lungs decreased breath sounds Abd- soft, obese,mild tenderness + RLQ Trace edema Awake PLAN Better Ct scan - Decreased Inflammation-- Fistula Formation IV fluids NPO IV antibiotics pain control surgery on continuous pillowcase cutter lytes Will follow D/W pts family in detail Problem List - Problems (1) Appendicitis Code(s): K37 - UNSPECIFIED APPENDICITIS (2) Cecitis Code(s): K52.9 - NONINFECTIVE GASTROENTERITIS AND COLITIS, UNSPECIFIED (3) Weakness Code(s): R53.1 - WEAKNESS (4) Anemia Code(s): D64.9 - ANEMIA, UNSPECIFIED (5) Hypertension Code(s): I10 - ESSENTIAL (PRIMARY) HYPERTENSION Qualifiers: Hypertension type: essential hypertension Qualified Code(s): I10 - Essential (primary) hypertension (6) Parkinson disease Code(s): G20 - PARKINSON'S DISEASE
[2019-04-02 14:16] LABS: ANISOCYTOSIS 1+; MACROCYTOSIS 1+; OVALOCYTE 1+; PLATELET ESTIMATE NORMAL; TEAR DROP CELLS 1+
[2019-04-02] MEDS ORDERED: PT OWN MED (PYXIS) ONE (17:28)
[2019-04-03] MEDS ORDERED: PIPERACILLIN/TAZOBACTAM 3.375 GM VIAL IVPB ONE ×3 (01:20→17:11)
[2019-04-03] MEDS ORDERED: DEXTROSE 5%-WATER - 50 ML IVPB ONE ×3 (01:21→17:12)
[2019-04-03] MEDS: D5-1/2NS+20 MEQ KCL - 20 MEQ/1,000 ML INFUS.BAG IV SCH ×2 (01:22→19:00)
[2019-04-03] MEDS: PIPERACILLIN/TAZOB 3.375 GM 3.375 GM in DEXTROSE 5%-WATER - 50 ML IVPB SCH ×3 (01:22→17:25)
[2019-04-03] MEDS: GABAPENTIN 400 MG CAPSULE PO SCH ×3 (06:54→21:50)
[2019-04-03] MEDS ORDERED: PT OWN MED DRAWER 7, Y5N ONE (10:10)
[2019-04-03] MEDS: PANTOPRAZOLE SODIUM 40 MG VIAL IVPUSH SCH (10:33)
[2019-04-03] MEDS: NEBIVOLOL 5 MG TABLET (FP) PO SCH (10:33)
--- NOTE | 2019-04-03 11:06 | PN ---
Progress Note, Physician Chief Complaint: denies any pain History of Present Illness: 68 yr old admitted witha inflammatory mass in the RLQ, fever , leukocytosis - Current Medication List Current Medications: Active Medications Acetaminophen (Tylenol -) 1,000 mg PO Q6H PRN PRN Reason: PAIN LEVEL 6-10 Last Admin: 03/30/19 17:11 Dose: 1,000 mg Carbidopa/Levodopa (Sinemet *Cr* 25/100 -) 1 combo PO QID [facility] Last Admin: 04/03/19 10:33 Dose: 1 combo Gabapentin (Neurontin -) 400 mg PO TID [facility] Last Admin: 04/03/19 06:54 Dose: 400 mg Metronidazole (Flagyl 500mg Premixed Ivpb -) 500 mg in 100 mls @ 100 mls/hr IVPB Q8H-IV [facility] Last Admin: 04/03/19 10:32 Dose: 100 mls/hr Piperacillin Sod/Tazobactam (Sod 3.375 gm/ Dextrose) 50 mls @ 100 mls/hr IVPB Q8H-IV [facility]; Protocol Last Admin: 04/03/19 10:33 Dose: 100 mls/hr Potassium Chloride/Dextrose/Sod Cl (D5-1/2ns+20 Meq Kcl -) 20 meq in 1,000 mls @ 60 mls/hr IV ASDIR [facility] Last Admin: 04/03/19 01:22 Dose: 60 mls/hr Ibuprofen (Caldolor Injection -) 600 mg IVPB Q6H PRN PRN Reason: FEVER Last Admin: 03/31/19 06:20 Dose: 600 mg Nebivolol (Bystolic -) 5 mg PO DAILY [facility] Last Admin: 04/03/19 10:33 Dose: 5 mg Pantoprazole Sodium (Protonix Iv) 40 mg IVPUSH DAILY [facility] Last Admin: 04/03/19 10:33 Dose: 40 mg - Objective Vital Signs: Vital Signs Temperature 99.5 F 04/03/19 10:00 Pulse Rate 77 04/03/19 10:00 Respiratory Rate 18 04/03/19 10:00 Blood Pressure 157/84 04/03/19 10:00 O2 Sat by Pulse Oximetry (%) 98 04/02/19 21:00 Gastrointestinal: Yes: Other (completlely nontender) Labs: CBC, BMP 04/02/19 05:20 04/02/19 05:20 INR, PTT INR 1.35 (0.83-1.09) H 03/29/19 12:10 Problem List - Problems (1) Appendicitis Code(s): K37 - UNSPECIFIED APPENDICITIS (2) Cecitis Code(s): K52.9 - NONINFECTIVE GASTROENTERITIS AND COLITIS, UNSPECIFIED Assessment/Plan Clinically improving with decreasing WBC and fever curve. Recommend repaet CT tomorrow and IR consult for possible percutaneous drainage if there is a drainable collection.
--- NOTE | 2019-04-03 12:37 | PN ---
Progress Note (short form) - Note Progress Note: pt seen/ examined awake /comfortable speaks little denies pain surgical f/u noted and d/w Surgeon also today afebrile Vital Signs Temp 99.5 F 04/03/19 10:00 Pulse 77 04/03/19 10:00 Resp 18 04/03/19 10:00 BP 157/84 04/03/19 10:00 Pulse Ox 98 04/03/19 09:00 Intake & Output 04/02/19 04/03/19 04/03/19 23:59 11:59 23:59 Intake Total 810 Output Total 500 350 Balance -500 460 Intake: IV 660 D5-1/2NS+20 MEQ KCL - 20 660 meq In 1,000 ml @ 60 mls/ hr IV ASDIR SOL[facility] Rx#: [id number] IVPB 150 Output: Urine 500 350 Bernstein 500 350 Other: Voiding Method Indwelling Catheter Indwelling Catheter Active Medications Acetaminophen (Tylenol -) 1,000 mg PO Q6H PRN PRN Reason: PAIN LEVEL 6-10 Last Admin: 03/30/19 17:11 Dose: 1,000 mg Carbidopa/Levodopa (Sinemet *Cr* 25/100 -) 1 combo PO QID [facility] Last Admin: 04/03/19 10:33 Dose: 1 combo Gabapentin (Neurontin -) 400 mg PO TID [facility] Last Admin: 04/03/19 06:54 Dose: 400 mg Metronidazole (Flagyl 500mg Premixed Ivpb -) 500 mg in 100 mls @ 100 mls/hr IVPB Q8H-IV [facility] Last Admin: 04/03/19 10:32 Dose: 100 mls/hr Piperacillin Sod/Tazobactam (Sod 3.375 gm/ Dextrose) 50 mls @ 100 mls/hr IVPB Q8H-IV [facility]; Protocol Last Admin: 04/03/19 10:33 Dose: 100 mls/hr Potassium Chloride/Dextrose/Sod Cl (D5-1/2ns+20 Meq Kcl -) 20 meq in 1,000 mls @ 60 mls/hr IV ASDIR [facility] Last Admin: 04/03/19 01:22 Dose: 60 mls/hr Ibuprofen (Caldolor Injection -) 600 mg IVPB Q6H PRN PRN Reason: FEVER Last Admin: 01/23/20 06:20 Dose: 600 mg Nebivolol (Bystolic -) 5 mg PO DAILY [facility] Last Admin: 04/03/19 10:33 Dose: 5 mg Pantoprazole Sodium (Protonix Iv) 40 mg IVPUSH DAILY [facility] Last Admin: 04/03/19 10:33 Dose: 40 mg CBC, BMP 04/02/19 05:20 04/02/19 05:20 Physical Exam Awake/ comfortable S1 S2 RRR Lungs decreased breath sounds Abd- soft, obese,mild tenderness + RLQ Trace edema Awake PLAN comfortable Ct scan - Decreased Inflammation-- Fistula Formation IV fluids NPO IV antibiotics pain control surgery 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
[2019-04-03] MEDS: ACETAMINOPHEN 500 MG TABLET (FP) PO PRN (14:17)
[2019-04-04] MEDS ORDERED: PIPERACILLIN/TAZOBACTAM 3.375 GM VIAL IVPB ONE ×3 (02:01→18:05)
[2019-04-04] MEDS ORDERED: DEXTROSE 5%-WATER - 50 ML IVPB ONE ×3 (02:01→18:05)
[2019-04-04] MEDS: PIPERACILLIN/TAZOB 3.375 GM 3.375 GM in DEXTROSE 5%-WATER - 50 ML IVPB SCH ×3 (02:04→18:10)
[2019-04-04] MEDS: D5-1/2NS+20 MEQ KCL - 20 MEQ/1,000 ML INFUS.BAG IV SCH ×2 (05:18→18:47)
[2019-04-04] MEDS: GABAPENTIN 400 MG CAPSULE PO SCH ×3 (05:46→21:14)
[2019-04-04 07:47] LABS: BASO % 0.8 % (0-2.0); EOS % 4.5 % (0-4.5); HEMOGLOBIN 9.5 GM/dL (10.7-15.3); LYMPH % 24.7 % (8-40); MCH 21.4 pg (25.7-33.7); MCHC 31.7 g/dl (32.0-36.0); MEAN CELL VOLUME 67.6 fl (80-96); MEAN PLT VOLUME 7.7 fl (7.5-11.1); MONO % 4.9 % (3.8-10.2); NEUT % 65.1 % (42.8-82.8); PLATELET COUNT 484 K/MM3 (134-434); RBC 4.43 M/mm3 (3.60-5.2); RDW 17.6 % (11.6-15.6); WHITE BLOOD COUNT 8.9 K/mm3 (4.0-10.0)
[2019-04-04 08:14] LABS: ALBUMIN 2.4 g/dl (3.4-5.0); BILIRUBIN,TOTAL 0.4 mg/dL (0.2-1); BLOOD UREA NITROGEN 8.3 mg/dL (7-18); CALCIUM 8.3 mg/dL (8.5-10.1); CREATININE 0.5 mg/dL (0.55-1.3); POTASSIUM 3.8 mmol/L (3.5-5.1); TOT PROT 5.9 g/dl (6.4-8.2)
[2019-04-04] MEDS: PANTOPRAZOLE SODIUM 40 MG VIAL IVPUSH SCH (09:52)
[2019-04-04] MEDS: NEBIVOLOL 5 MG TABLET (FP) PO SCH (09:54)
[2019-04-04 11:15] LABS: ERYTHROCYTE SEDIMENTATION RATE 57 mm/hr (0-30)
--- NOTE | 2019-04-04 11:48 | PN ---
Progress Note (short form) - Note Progress Note: No new complaints. denies abdominal pain. Awaiting rpt CT CBC, BMP 04/04/19 06:45 04/04/19 06:45 Vital Signs Temp 98.2 F 04/04/19 10:00 Pulse 82 04/04/19 10:00 Resp 22 H 04/04/19 10:00 BP 151/80 04/04/19 10:00 Pulse Ox 92 L 04/04/19 09:00 Intake & Output 04/03/19 04/03/19 04/04/19 11:59 23:59 11:59 Intake Total 810 1240 450 Output Total 350 1000 Balance 460 240 450 Intake: IV 660 840 300 D5-1/2NS+20 MEQ KCL - 20 660 840 300 meq In 1,000 ml @ 60 mls/ hr IV ASDIR SOLANGE Rx#: [id number] IVPB 150 300 150 Oral 100 Output: Urine 350 1000 Bernstein 350 1000 Other: Voiding Method Indwelling Catheter Incontinent Incontinent # Unmeasured Voids Void 1 1 Bowel Movement Yes PE: NAD ABD: obese, soft, NT, ND Problem List - Problems (1) Appendicitis Assessment/Plan: Patient currently with no pain and no white count. -f/u RPT CT scan -trend labs Code(s): K37 - UNSPECIFIED APPENDICITIS
--- NOTE | 2019-04-04 12:50 | PN ---
Progress Note (short form) - Note Progress Note: Pt seen/ examined all f/u noted. comfortable Vital Signs Temp 98.2 F 04/04/19 10:00 Pulse 82 04/04/19 10:00 Resp 22 H 04/04/19 10:00 BP 151/80 04/04/19 10:00 Pulse Ox 92 L 04/04/19 09:00 Intake & Output 04/03/19 04/04/19 04/04/19 23:59 11:59 23:59 Intake Total 1240 450 Output Total 1000 Balance 240 450 Intake: IV 840 300 D5-1/2NS+20 MEQ KCL - 20 840 300 meq In 1,000 ml @ 60 mls/ hr IV ASDIR SOLANGE Rx#: [id number] IVPB 300 150 Oral 100 Output: Urine 1000 Bernstein 1000 Other: Voiding Method Incontinent Incontinent # Unmeasured Voids Void 1 1 Bowel Movement Yes Yes Active Medications Acetaminophen (Tylenol -) 1,000 mg PO Q6H PRN PRN Reason: PAIN LEVEL 6-10 Last Admin: 04/03/19 14:17 Dose: 1,000 mg Carbidopa/Levodopa (Sinemet *Cr* 25/100 -) 1 combo PO QID [facility] Last Admin: 04/04/19 09:55 Dose: 1 combo Gabapentin (Neurontin -) 400 mg PO TID [facility] Last Admin: 04/04/19 05:46 Dose: 400 mg Metronidazole (Flagyl 500mg Premixed Ivpb -) 500 mg in 100 mls @ 100 mls/hr IVPB Q8H-IV [facility] Last Admin: 04/04/19 10:38 Dose: 100 mls/hr Piperacillin Sod/Tazobactam (Sod 3.375 gm/ Dextrose) 50 mls @ 100 mls/hr IVPB Q8H-IV [facility]; Protocol Last Admin: 04/04/19 09:52 Dose: 100 mls/hr Potassium Chloride/Dextrose/Sod Cl (D5-1/2ns+20 Meq Kcl -) 20 meq in 1,000 mls @ 60 mls/hr IV ASDIR [facility] Last Admin: 04/04/19 05:18 Dose: 60 mls/hr Ibuprofen (Caldolor Injection -) 600 mg IVPB Q6H PRN PRN Reason: FEVER Last Admin: 03/31/19 06:20 Dose: 600 mg Nebivolol (Bystolic -) 5 mg PO DAILY [facility] Last Admin: 04/04/19 09:54 Dose: 5 mg Pantoprazole Sodium (Protonix Iv) 40 mg IVPUSH DAILY [facility] Last Admin: 04/04/19 09:52 Dose: 40 mg CBC, BMP 04/04/19 06:45 04/04/19 06:[address] - Pending -- today Physical Exam Awake/ comfortable S1 S2 RRR Lungs decreased breath sounds Abd- soft, obese,mild tenderness + RLQ Trace edema Awake PLAN comfortable Ct scan - Decreased Inflammation-- Fistula Formation-- f/u ct scan today IV fluids NPO IV antibiotics pain control surgery on binder [place]er [place] Will follow Problem List - Problems (1) Appendicitis Code(s): K37 - UNSPECIFIED APPENDICITIS (2) Cecitis Code(s): K52.9 - NONINFECTIVE GASTROENTERITIS AND COLITIS, UNSPECIFIED (3) Weakness Code(s): R53.1 - WEAKNESS (4) Anemia Code(s): D64.9 - ANEMIA, UNSPECIFIED (5) Hypertension Code(s): I10 - ESSENTIAL (PRIMARY) HYPERTENSION Qualifiers: Hypertension type: essential hypertension Qualified Code(s): I10 - Essential (primary) hypertension (6) Parkinson disease Code(s): G20 - PARKINSON'S DISEASE
[2019-04-04] MEDS: ACETAMINOPHEN 500 MG TABLET (FP) PO PRN ×2 (13:29→21:14)
[2019-04-05] MEDS ORDERED: PIPERACILLIN/TAZOBACTAM 3.375 GM VIAL IVPB ONE ×3 (01:25→17:31)
[2019-04-05] MEDS ORDERED: DEXTROSE 5%-WATER - 50 ML IVPB ONE ×3 (01:26→17:32)
[2019-04-05] MEDS: D5-1/2NS+20 MEQ KCL - 20 MEQ/1,000 ML INFUS.BAG IV SCH ×2 (01:58→20:43)
[2019-04-05] MEDS: PIPERACILLIN/TAZOB 3.375 GM 3.375 GM in DEXTROSE 5%-WATER - 50 ML IVPB SCH ×3 (01:58→17:40)
[2019-04-05] MEDS: GABAPENTIN 400 MG CAPSULE PO SCH ×3 (06:01→21:13)
--- NOTE | 2019-04-05 09:11 | PN ---
Progress Note (short form) - Note Progress Note: remains asymptomatic vss afebrile Exam completely nontender WBC continues to go down CT scan shows improvement of 4 cm collection Recommendations Start on clear liquid diet until evaluation by IR as to whether ther can drain this collection. The associated risk of a enterocutaneous fistula is appreciated and may be unavoidable. Advance diet as tolerated Problem List - Problems (1) Appendicitis Code(s): K37 - UNSPECIFIED APPENDICITIS (2) Cecitis Code(s): K52.9 - NONINFECTIVE GASTROENTERITIS AND COLITIS, UNSPECIFIED
[2019-04-05] MEDS: PANTOPRAZOLE SODIUM 40 MG VIAL IVPUSH SCH (09:55)
[2019-04-05] MEDS ORDERED: PT OWN MED DRAWER 7, Y5N ONE ×3 (10:11→20:04)
[2019-04-05] MEDS: NEBIVOLOL 5 MG TABLET (FP) PO SCH (10:14)
--- NOTE | 2019-04-05 10:37 | PN ---
Progress Note (short form) - Note Progress Note: no fever no pain pt appears comfortable 04/04/19 04/04/19 04/05/19 13:23 18:00 06:00 Temperature 98.7 F 98.6 F 98.4 F Pulse Rate 77 75 74 Respiratory 22 H 20 20 Rate Blood Pressure 138/76 146/86 130/70 Current Medications Generic Name Dose Route Start Last Admin Trade Name Freq PRN Reason Stop Dose Admin Acetaminophen 1,000 mg 03/30/19 14:37 04/04/19 21:14 Tylenol - PO 1,000 mg Q6H PRN Administration PAIN LEVEL 6-10 Carbidopa/Levodopa 1 combo 03/31/19 10:00 04/05/19 10:14 Sinemet *Cr* 25/100 - PO 1 combo QID [facility] Administration Gabapentin 400 mg 03/31/19 06:00 04/05/19 06:01 Neurontin - PO 400 mg TID [facility] Administration Metronidazole 500 mg in 100 mls @ 100 mls/hr 03/29/19 12:00 04/05/19 01:27 Flagyl 500mg Premixed Ivpb - IVPB 100 mls/hr Q8H-IV [facility] Administration Piperacillin Sod/Tazobactam 50 mls @ 100 mls/hr 03/31/19 10:00 04/05/19 09:55 Sod 3.375 gm/ Dextrose IVPB 100 mls/hr Q8H-IV [facility] Administration Protocol Potassium Chloride/Dextrose/Sod Cl 20 meq in 1,000 mls @ 60 mls/hr 03/31/19 18 :30 04/05/19 01:58 D5-1/2ns+20 Meq Kcl - IV 60 mls/hr ASDIR [facility] Administration Ibuprofen 600 mg 03/30/19 12:25 03/31/19 06:20 Caldolor Injection - IVPB 600 mg Q6H PRN Administration FEVER Nebivolol 5 mg 03/30/19 10:00 04/05/19 10:14 Bystolic - PO 5 mg DAILY [facility] Administration Pantoprazole Sodium 40 mg 03/31/19 10:00 04/05/19 09:55 Protonix Iv IVPUSH 40 mg DAILY [facility] Administration Laboratory Results - last 24 hr 04/04/19 06:45 ESR 57 H S1 S2 RRR Lungs decreased breath sounds Abd- soft, obese,tenderness in RLQ Trace edema PLAN IV fluids per surgeon-- to start clears today IV antibiotics continue with meds Surgical follow up noted CT abd noted-- improvement of collection,. 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-->may need IR to drain collection Problem List - Problems (1) Appendicitis Code(s): K37 - UNSPECIFIED APPENDICITIS (2) Cecitis Code(s): K52.9 - NONINFECTIVE GASTROENTERITIS AND COLITIS, UNSPECIFIED (3) Weakness Code(s): R53.1 - WEAKNESS (4) Anemia Code(s): D64.9 - ANEMIA, UNSPECIFIED (5) Hypertension Code(s): I10 - ESSENTIAL (PRIMARY) HYPERTENSION Qualifiers: Hypertension type: essential hypertension Qualified Code(s): I10 - Essential (primary) hypertension (6) Parkinson disease Code(s): G20 - PARKINSON'S DISEASE
--- NOTE | 2019-04-05 17:05 | PN ---
Progress Note, Physician Chief Complaint: AWAKE IN BED RESPONSIVE TEMPS REMAIN DOWN WBC IMPROVED WNL REPEAT CT SHOWS IMPROVEMENT SURGICAL F/U APPRECIATED - Current Medication List Current Medications: Active Medications Acetaminophen (Tylenol -) 1,000 mg PO Q6H PRN PRN Reason: PAIN LEVEL 6-10 Last Admin: 04/04/19 21:14 Dose: 1,000 mg Carbidopa/Levodopa (Sinemet *Cr* 25/100 -) 1 combo PO QID [facility] Last Admin: 04/05/19 14:20 Dose: 1 combo Gabapentin (Neurontin -) 400 mg PO TID [facility] Last Admin: 04/05/19 14:20 Dose: 400 mg Metronidazole (Flagyl 500mg Premixed Ivpb -) 500 mg in 100 mls @ 100 mls/hr IVPB Q8H-IV [facility] Last Admin: 04/05/19 11:25 Dose: 100 mls/hr Piperacillin Sod/Tazobactam (Sod 3.375 gm/ Dextrose) 50 mls @ 100 mls/hr IVPB Q8H-IV [facility]; Protocol Last Admin: 04/05/19 09:55 Dose: 100 mls/hr Potassium Chloride/Dextrose/Sod Cl (D5-1/2ns+20 Meq Kcl -) 20 meq in 1,000 mls @ 60 mls/hr IV ASDIR [facility] Last Admin: 04/05/19 01:58 Dose: 60 mls/hr Ibuprofen (Caldolor Injection -) 600 mg IVPB Q6H PRN PRN Reason: FEVER Last Admin: 03/31/19 06:20 Dose: 600 mg Nebivolol (Bystolic -) 5 mg PO DAILY [facility] Last Admin: 04/05/19 10:14 Dose: 5 mg Pantoprazole Sodium (Protonix Iv) 40 mg IVPUSH DAILY [facility] Last Admin: 04/05/19 09:55 Dose: 40 mg - Objective Vital Signs: Vital Signs Temperature 99 F 04/05/19 13:41 Pulse Rate 86 04/05/19 13:41 Respiratory Rate 20 04/05/19 13:41 Blood Pressure 153/90 04/05/19 13:41 O2 Sat by Pulse Oximetry (%) 92 L 04/04/19 09:00 Constitutional: Yes: No Distress, Obese Eyes: Yes: Conjunctiva Clear Cardiovascular: Yes: Regular Rate and Rhythm Respiratory: Yes: CTA Bilaterally Gastrointestinal: Yes: Normal Bowel Sounds, Soft. No: Tenderness Labs: CBC, BMP 04/04/19 06:45 04/04/19 06:45 INR, PTT INR 1.35 (0.83-1.09) H 03/29/19 12:10 Assessment/Plan RLQ INFLAMMATORY PROCESS ? ETIOLOGY FEVER/ LEUKOCYTOSIS IMPROVED CONTINUE EMPIRIC ZOSYN/ FLAGYL
--- NOTE | 2019-04-05 19:54 | CON.NEURO ---
Consult Consult Specialty:: NEUROLOGY-ADAM [facility] - History of Present Illness History of Present Illness: Nasrin Park is a 68 year old female with a past medical history of Parkinson' s disease (on Sinemet), HTN, arthritis who presents with a 5 day history of weakness, lethargy, intermittent shortness of breath, cough. The patient was noted by the who is at bedside to have become more tired and not ambulating as well as she usually does. Normally, the patient is able to ambulate with a walker. She was noted to have a productive cough of clear to white sputum as well as some intermitted shortness of breath. The patient slept most of the day and did not have good PO intake in the last several days. Endorsed subjective fever. noted that the patient had been having a longer standing history of constipation and takes over the counter medications for the constipation. Denied melena or hematochezia. Additionally, the notes that the patient takes over the counter NSAIDs Advil, Alleve, aspirin for pain in her shoulder on a daily basis. Intermittently complained of mild and non-specific abdominal pain. Denied any liver history, nausea, vomiting, chest pain, headaches, dizziness, lightheadedness, falls. Denied sick contacts or recent travel. On interview, patient was responsive to commands but denied any acute complaints. Kept her eyes closed throughout the interview and repeated the same request of wanting a medication to help her sleep. Did answer questions appropriately. ER course was notable for: (1) Tmax 100.5, BP 112/37, sat 98 on 2L NC (2) WBC 18.8, Hgb 7.6-->6.9, plts 643, MCV 64, BUN 34.7, AST 59, Alb 2.5 (3) CXR without acute pathology. (4) CT abdomen preliminary read noting Severe L3 compression fracture, of uncertain age. Mild T11 fracture, probably old. Focal inflammation / infection seen at right lower quadrant, including cecum and adjacent soft tissues. Compatible with cecitis. Appendix is not visualized separately, and appendicitis cannot be excluded (this may be secondary to cecal inflammation). No obstruction seen. Small air bubbles seen in the area of inflammation may be due to volume averaging artifact, abscess / infection, or microperforation. -Pt. is noted to be wheelchair bound at home. Hospital events noted, she reports she has had PD for years, does not recall meds she has been on ad that x years she has not been able to ambulate 2/2 "leg weakness". Unable to give further hx. 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 Cardio/Vascular: Yes: HTN ...: No Psych: Yes: Anxiety (Suspected) Musculoskeletal: Yes: Chronic low back pain, Other (L3 compression fracture, Contracture of the R-Foot) - Past Surgical History Past Surgical History: Yes: None, Hernia Repair (ABD x3), Joint Replacement (L: TSA, TKA R: TKA), Tubal Ligation - Alcohol/Substance Use Hx Alcohol Use: No History of Substance Use: reports: None - Smoking History Smoking history: Never smoked Have you smoked in the past 12 months: No Aproximately how many cigarettes per day: 0 - Social History Usual Living Arrangement: With Spouse ADL: Family Assistance History of Recent Travel: No Home Medications - Allergies Allergies/Adverse Reactions: Allergies Allergy/AdvReac Type Severity Reaction Status Date / Time iodine [Iodine] Allergy Unknown Rash Verified 03/28/19 18:00 - Home Medications Home Medications: Ambulatory Orders Sertraline HCl [Zoloft -] 50 mg PO DAILY tablet 10/24/14 Gabapentin [Neurontin -] 400 mg PO TID 11/03/14 Carbidopa/Levodopa *Cr* 25/100 [Sinemet *Cr* 25/100 -] 1 combo PO QID 12/13/14 Aspirin Coated [Ecotrin -] 81 mg PO DAILY #30 tablet.ec 01/26/16 Cephalexin Monohydrate [Keflex -] 500 mg PO Q6H #40 capsule 11/11/16 Physical Exam-Neuro Vital Signs: Vital Signs Temperature 98.8 F 04/05/19 19:02 Pulse Rate 72 04/05/19 19:02 Respiratory Rate 18 04/05/19 19:02 Blood Pressure 120/74 04/05/19 19:02 O2 Sat by Pulse Oximetry (%) 94 L 04/05/19 09:00 Labs: CBC, BMP 04/04/19 06:45 04/04/19 06:45 INR, PTT INR 1.35 (0.83-1.09) H 03/29/19 12:10 - Neuro Exam Level Of Consciousness: Yes: Alert, Oriented to Person, Oriented to Place Eyes: Yes: PERRL Speech: Other (hypophonic, festinant) Mini Mental Exam: Impaired STM/concentration Cranial Nerves II-XII Intact: No (diminished right NLF) DTR's: 0 Left Achilles, 0 Right Achilles, 1+ Left Bicep, 1+ Right Bicep, 1+ Left Tricep, 1+ Right Tricep, 1+ Left Brachioradialis, 1+ Right Brachioradialis Babinski: Present (bilat upgoing toes) Movement Disorders: Other (No rigidity in all 4 extremities) Motor Strength: 2/5: Left Leg, Right Leg, 3/5: Left Arm, 4/5: Right Arm Gait: Other (unable to stand) Assessment/Plan Pt. with nhx. of PD by report, her exam reveals no rigiditry(?? Sinemet working well), do not know what other meds she has been on for PD and how it has progressed. For now would keep on Sinemet CR 25/100, 1 qid. Will d/w Dr. Pina re: past hx. At this time would not make medication changes given her medical condition, PD can be worsened with intertcurrent illness. Thank you, Tomeka Ruiz MD
[2019-04-05] MEDS: IBUPROFEN 800 MG/8 ML IJ IVPB PRN (21:13)
[2019-04-06] MEDS ORDERED: DEXTROSE 5%-WATER - 50 ML IVPB ONE ×3 (01:40→17:09)
[2019-04-06] MEDS ORDERED: PIPERACILLIN/TAZOBACTAM 3.375 GM VIAL IVPB ONE ×3 (01:40→17:09)
[2019-04-06] MEDS: PIPERACILLIN/TAZOB 3.375 GM 3.375 GM in DEXTROSE 5%-WATER - 50 ML IVPB SCH ×3 (01:44→17:36)
[2019-04-06] MEDS: D5-1/2NS+20 MEQ KCL - 20 MEQ/1,000 ML INFUS.BAG IV SCH ×2 (05:37→19:06)
[2019-04-06] MEDS: GABAPENTIN 400 MG CAPSULE PO SCH ×3 (06:10→21:11)
[2019-04-06 07:27] LABS: BASO % 0.6 % (0-2.0); EOS % 5.1 % (0-4.5); HEMOGLOBIN 8.4 GM/dL (10.7-15.3); LYMPH % 28.3 % (8-40); MCH 21.7 pg (25.7-33.7); MCHC 32.4 g/dl (32.0-36.0); MEAN CELL VOLUME 66.9 fl (80-96); MEAN PLT VOLUME 7.5 fl (7.5-11.1); MONO % 6.1 % (3.8-10.2); NEUT % 59.9 % (42.8-82.8); PLATELET COUNT 435 K/MM3 (134-434); RBC 3.89 M/mm3 (3.60-5.2); RDW 21.5 % (11.6-15.6); WHITE BLOOD COUNT 7.5 K/mm3 (4.0-10.0)
[2019-04-06 08:00] LABS: ALBUMIN 2.3 g/dl (3.4-5.0); BILIRUBIN,TOTAL 0.5 mg/dL (0.2-1); BLOOD UREA NITROGEN 8.3 mg/dL (7-18); CALCIUM 8.2 mg/dL (8.5-10.1); CREATININE 0.5 mg/dL (0.55-1.3); POTASSIUM 3.5 mmol/L (3.5-5.1); TOT PROT 5.6 g/dl (6.4-8.2)
--- NOTE | 2019-04-06 08:14 | PN ---
Progress Note (short form) - Note Progress Note: Patient is a 68 year old female admitted for abdominal pain. Patient was seen and examined at bedside. She is tolerating a clear liquid diet without nausea, vomiting, or other complaints and had a bowel movement yesterday. CBC, BMP 04/06/19 06:40 Vital Signs Temp 97.8 F 04/06/19 05:46 Pulse 61 04/06/19 05:46 Resp 16 04/06/19 05:46 BP 124/68 04/06/19 05:46 Pulse Ox 96 04/05/19 21:00 Intake & Output 04/05/19 04/05/19 04/06/19 11:59 23:59 11:59 Intake Total 300 390 Balance 300 390 Intake: IV 240 D5-1/2NS+20 MEQ KCL - 20 240 meq In 1,000 ml @ 60 mls/ hr IV ASDIR SOLANGE Rx#: [id number] IVPB 150 Oral 300 Other: Voiding Method Diaper Diaper # Unmeasured Voids Void 1 Bowel Movement Yes # Bowel Movements 1 General: Well developed, well nourished, female in no acute distress Abdomen: soft, mildly distended, non-tender, no guarding appreciated Assessment and Plan: 68 year old female with intraabdominal abscess secondary to microperforation. Repeat CT Scan shows decrease in size of collection. - Continue clear liquid diet with advancement as tolerated until evaluation by IR team - Continue Zosyn and Flagyl for antibiotic coverage - Continue present medical management
[2019-04-06] MEDS ORDERED: PT OWN MED DRAWER 7, Y5N ONE (09:12)
[2019-04-06] MEDS: PANTOPRAZOLE SODIUM 40 MG VIAL IVPUSH SCH (09:28)
[2019-04-06] MEDS: NEBIVOLOL 5 MG TABLET (FP) PO SCH (09:28)
[2019-04-06 11:12] LABS: ANISOCYTOSIS 1+; MACROCYTOSIS 0; OVALOCYTE 1+; PLATELET ESTIMATE NORMAL; TARGET CELLS 2+; TEAR DROP CELLS 1+
--- NOTE | 2019-04-06 11:30 | PN ---
Progress Note (short form) - Note Progress Note: no fever no pain pt appears comfortable tolerating clears Vital Signs - 24 hr 04/05/19 04/05/19 04/05/19 13:41 19:02 20:43 Temperature 99 F 98.8 F 99.7 F H Pulse Rate 86 72 77 Respiratory 20 18 16 Rate Blood Pressure 153/90 120/74 139/79 O2 Sat by Pulse Oximetry (%) 04/05/19 04/06/19 04/06/19 21:00 05:46 10:00 Temperature 97.8 F 98.2 F Pulse Rate 61 72 Respiratory 16 16 18 Rate Blood Pressure 124/68 141/78 O2 Sat by Pulse 96 Oximetry (%) Current Medications Generic Name Dose Route Start Last Admin Trade Name Freq PRN Reason Stop Dose Admin Acetaminophen 1,000 mg 03/30/19 14:37 04/04/19 21:14 Tylenol - PO 1,000 mg Q6H PRN Administration PAIN LEVEL 6-10 Carbidopa/Levodopa 1 combo 03/31/19 10:00 04/06/19 09:32 Sinemet *Cr* 25/100 - PO 1 combo QID [facility] Administration Gabapentin 400 mg 03/31/19 06:00 04/06/19 06:10 Neurontin - PO 400 mg TID [facility] Administration Metronidazole 500 mg in 100 mls @ 100 mls/hr 03/29/19 12:00 04/06/19 10:54 Flagyl 500mg Premixed Ivpb - IVPB 100 mls/hr Q8H-IV [facility] Administration Piperacillin Sod/Tazobactam 50 mls @ 100 mls/hr 03/31/19 10:00 04/06/19 09:29 Sod 3.375 gm/ Dextrose IVPB 100 mls/hr Q8H-IV [facility] Administration Protocol Potassium Chloride/Dextrose/Sod Cl 20 meq in 1,000 mls @ 60 mls/hr 03/31/19 18 :30 04/06/19 05:37 D5-1/2ns+20 Meq Kcl - IV 60 mls/hr ASDIR [facility] Administration Ibuprofen 600 mg 03/30/19 12:25 04/05/19 21:13 Caldolor Injection - IVPB 600 mg Q6H PRN Administration FEVER Nebivolol 5 mg 03/30/19 10:00 04/06/19 09:28 Bystolic - PO 5 mg DAILY [facility] Administration Pantoprazole Sodium 40 mg 03/31/19 10:00 04/06/19 09:28 Protonix Iv IVPUSH 40 mg DAILY [facility] Administration Laboratory Results - last 24 hr 04/06/19 04/06/19 06:40 06:40 WBC 7.5 RBC 3.89 Hgb 8.4 L Hct 26.0 L MCV 66.9 L MCH 21.7 L MCHC 32.4 RDW 21.5 H Plt Count 435 H MPV 7.5 Absolute Neuts (auto) 4.5 Neutrophils % 59.9 Lymphocytes % 28.3 Monocytes % 6.1 Eosinophils % 5.1 H Basophils % 0.6 Nucleated RBC % 0 Hypochromia 0 Platelet Estimate Normal Polychromasia 1+ Poikilocytosis 2+ Anisocytosis 1+ Microcytosis 1+ Macrocytosis 0 Spherocytes 1+ Target Cells 2+ Tear Drop Cells 1+ Ovalocytes 1+ Stomatocytes 1+ Fragmented RBCs 1+ Sodium 140 Potassium 3.5 Chloride 108 H Carbon Dioxide 26 Anion Gap 6 L BUN 8.3 Creatinine 0.5 L Est GFR (CKD-EPI)AfAm 114.45 Est GFR (CKD-EPI)NonAf 98.75 Random Glucose 94 Calcium 8.2 L Total Bilirubin 0.5 AST 24 ALT 14 Alkaline Phosphatase 54 Total Protein 5.6 L Albumin 2.3 L S1 S2 RRR Lungs decreased breath sounds Abd- soft, obese,tenderness in RLQ Trace edema PLAN IV fluids per surgeon-- advance to full liquids IV antibiotics continue with meds Surgical follow up noted CT abd noted-- improvement of collection,. 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-->may need IR to drain collection will consult IR for possible drainage of abscess Problem List - Problems (1) Appendicitis Code(s): K37 - UNSPECIFIED APPENDICITIS (2) Cecitis Code(s): K52.9 - NONINFECTIVE GASTROENTERITIS AND COLITIS, UNSPECIFIED (3) Weakness Code(s): R53.1 - WEAKNESS (4) Anemia Code(s): D64.9 - ANEMIA, UNSPECIFIED (5) Hypertension Code(s): I10 - ESSENTIAL (PRIMARY) HYPERTENSION Qualifiers: Hypertension type: essential hypertension Qualified Code(s): I10 - Essential (primary) hypertension (6) Parkinson disease Code(s): G20 - PARKINSON'S DISEASE
--- NOTE | 2019-04-06 21:42 | PN ---
Progress Note (short form) - Note Progress Note: doing well recommend to continue to advance diet as tolerated. She can be followed with follow up scans as an outpatient to evaluate progression of colection. No surgical intervention at this time Problem List - Problems (1) Appendicitis Code(s): K37 - UNSPECIFIED APPENDICITIS (2) Cecitis Code(s): K52.9 - NONINFECTIVE GASTROENTERITIS AND COLITIS, UNSPECIFIED
[2019-04-07] MEDS ORDERED: PIPERACILLIN/TAZOBACTAM 3.375 GM VIAL IVPB ONE ×3 (01:07→17:08)
[2019-04-07] MEDS ORDERED: DEXTROSE 5%-WATER - 50 ML IVPB ONE ×3 (01:08→17:09)
[2019-04-07] MEDS: PIPERACILLIN/TAZOB 3.375 GM 3.375 GM in DEXTROSE 5%-WATER - 50 ML IVPB SCH ×3 (01:29→17:25)
[2019-04-07] MEDS: GABAPENTIN 400 MG CAPSULE PO SCH ×3 (06:05→21:24)
[2019-04-07] MEDS: PANTOPRAZOLE SODIUM 40 MG VIAL IVPUSH SCH (10:25)
[2019-04-07] MEDS: NEBIVOLOL 5 MG TABLET (FP) PO SCH (10:25)
[2019-04-07] MEDS: ACETAMINOPHEN 500 MG TABLET (FP) PO PRN (10:26)
--- NOTE | 2019-04-07 11:38 | PN ---
Progress Note (short form) - Note Progress Note: Nasrin Park is a 68 year old female with a past medical history of Parkinson' s disease (on Sinemet), HTN, arthritis who presents with a 5 day history of weakness, lethargy, intermittent shortness of breath, cough. The patient was noted by the who is at bedside to have become more tired and not ambulating as well as she usually does. Normally, the patient is able to ambulate with a walker. She was noted to have a productive cough of clear to white sputum as well as some intermitted shortness of breath. The patient slept most of the day and did not have good PO intake in the last several days. Endorsed subjective fever. noted that the patient had been having a longer standing history of constipation and takes over the counter medications for the constipation. Denied melena or hematochezia. Additionally, the notes that the patient takes over the counter NSAIDs Advil, Alleve, aspirin for pain in her shoulder on a daily basis. Intermittently complained of mild and non-specific abdominal pain. Denied any liver history, nausea, vomiting, chest pain, headaches, dizziness, lightheadedness, falls. Denied sick contacts or recent travel. On interview, patient was responsive to commands but denied any acute complaints. Kept her eyes closed throughout the interview and repeated the same request of wanting a medication to help her sleep. Did answer questions appropriately. Pt. is noted to be wheelchair bound at home. Hospital events noted, she reports she has had PD for years, does not recall meds she has been on ad that x years she has not been able to ambulate 2/2 "leg weakness". Unable to give further hx. 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 Cardio/Vascular: Yes: HTN ...: No Psych: Yes: Anxiety (Suspected) Musculoskeletal: Yes: Chronic low back pain, Other (L3 compression fracture, Contracture of the R-Foot) - Past Surgical History Past Surgical History: Yes: None, Hernia Repair (ABD x3), Joint Replacement (L: TSA, TKA R: TKA), Tubal Ligation - Alcohol/Substance Use Hx Alcohol Use: No History of Substance Use: reports: None - Smoking History Smoking history: Never smoked Have you smoked in the past 12 months: No Aproximately how many cigarettes per day: 0 - Social History Usual Living Arrangement: With Spouse ADL: Family Assistance History of Recent Travel: No Home Medications - Allergies Allergies/Adverse Reactions: Allergies Allergy/AdvReac Type Severity Reaction Status Date / Time iodine [Iodine] Allergy Unknown Rash Verified 03/28/19 18:00 - Home Medications Home Medications: Ambulatory Orders Sertraline HCl [Zoloft -] 50 mg PO DAILY tablet 10/24/14 Gabapentin [Neurontin -] 400 mg PO TID 11/03/14 Carbidopa/Levodopa *Cr* 25/100 [Sinemet *Cr* 25/100 -] 1 combo PO QID 12/13/14 Aspirin Coated [Ecotrin -] 81 mg PO DAILY #30 tablet.ec 01/26/16 Cephalexin Monohydrate [Keflex -] 500 mg PO Q6H #40 capsule 11/11/16 Physical Exam-Neuro Vital Signs: Vital Signs Temperature 98.2 F 04/07/19 08:00 Pulse Rate 76 04/07/19 08:00 Respiratory Rate 20 04/07/19 08:00 Blood Pressure 136/72 04/07/19 08:00 O2 Sat by Pulse Oximetry (%) 95 04/07/19 09:00 Labs: CBC, BMP 04/04/19 06:45 04/04/19 06:45 INR, PTT INR 1.35 (0.83-1.09) H 03/29/19 12:10 - Neuro Exam Level Of Consciousness: Yes: Alert, Oriented to Person, Oriented to Place Eyes: Yes: PERRL Speech: Other (hypophonic, festinant) Mini Mental Exam: Impaired STM/concentration Cranial Nerves II-XII Intact: No (diminished right NLF) DTR's: 0 Left Achilles, 0 Right Achilles, 1+ Left Bicep, 1+ Right Bicep, 1+ Left Tricep, 1+ Right Tricep, 1+ Left Brachioradialis, 1+ Right Brachioradialis Babinski: Present (bilat upgoing toes) Movement Disorders: Other (No rigidity in all 4 extremities) Motor Strength: limited hip flexion though with best effort quads, hams, TA appaer strong, though inc tone /deconditioned Gait: Other (unable to stand) Assessment/Plan progressive vs static gait disturbance in setting possible PD, prio lumbar FX and now admitted for abdominal infection /abcess -- ideally more HX from prior neuro, 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
--- NOTE | 2019-04-07 12:42 | PN ---
Progress Note (short form) - Note Progress Note: no fever no pain pt appears comfortable tolerating clears Vital Signs - 24 hr 04/06/19 04/06/19 04/06/19 14:48 18:23 20:29 Temperature 98.2 F 98.3 F 98.6 F Pulse Rate 71 66 77 Respiratory 20 20 19 Rate Blood Pressure 130/68 121/66 127/65 O2 Sat by Pulse Oximetry (%) 04/06/19 04/07/19 04/07/19 21:00 06:15 06:31 Temperature 99.3 F 97.9 F Pulse Rate 77 Respiratory 19 20 Rate Blood Pressure 157/86 O2 Sat by Pulse 95 Oximetry (%) 04/07/19 04/07/19 08:00 09:00 Temperature 98.2 F Pulse Rate 76 Respiratory 20 Rate Blood Pressure 136/72 O2 Sat by Pulse 95 Oximetry (%) Current Medications Generic Name Dose Route Start Last Admin Trade Name Freq PRN Reason Stop Dose Admin Acetaminophen 1,000 mg 03/30/19 14:37 04/07/19 10:26 Tylenol - PO 1,000 mg Q6H PRN Administration PAIN LEVEL 6-10 Carbidopa/Levodopa 1 combo 03/31/19 10:00 04/07/19 10:26 Sinemet *Cr* 25/100 - PO 1 combo QID [facility] Administration Gabapentin 400 mg 03/31/19 06:00 04/07/19 06:05 Neurontin - PO 400 mg TID [facility] Administration Metronidazole 500 mg in 100 mls @ 100 mls/hr 03/29/19 12:00 04/07/19 10:25 Flagyl 500mg Premixed Ivpb - IVPB 100 mls/hr Q8H-IV [facility] Administration Piperacillin Sod/Tazobactam 50 mls @ 100 mls/hr 03/31/19 10:00 04/07/19 10:26 Sod 3.375 gm/ Dextrose IVPB 100 mls/hr Q8H-IV [facility] Administration Protocol Potassium Chloride/Dextrose/Sod Cl 20 meq in 1,000 mls @ 60 mls/hr 03/31/19 18 :30 04/06/19 19:06 D5-1/2ns+20 Meq Kcl - IV Not Given ASDIR [facility] Ibuprofen 600 mg 03/30/19 12:25 04/05/19 21:13 Caldolor Injection - IVPB 600 mg Q6H PRN Administration FEVER Nebivolol 5 mg 03/30/19 10:00 04/07/19 10:25 Bystolic - PO 5 mg DAILY [facility] Administration Pantoprazole Sodium 40 mg 03/31/19 10:00 04/07/19 10:25 Protonix Iv IVPUSH 40 mg DAILY [facility] Administration S1 S2 RRR Lungs decreased breath sounds Abd- soft, obese,tenderness in RLQ Trace edema PLAN IV fluids has previous compression fractures of spine since 2011- spoke with Neurology-- spoke with Dr Dennis tompkins per surgeon-- advance diet IV antibiotics continue with meds Surgical follow up noted CT abd noted-- improvement of collection,. 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-->may need IR to drain collection IR for possible drainage of abscess-->they have requested for me to order CT abd /pelvis with iv contrast Problem List - Problems (1) Appendicitis Code(s): K37 - UNSPECIFIED APPENDICITIS (2) Cecitis Code(s): K52.9 - NONINFECTIVE GASTROENTERITIS AND COLITIS, UNSPECIFIED (3) Weakness Code(s): R53.1 - WEAKNESS (4) Anemia Code(s): D64.9 - ANEMIA, UNSPECIFIED (5) Hypertension Code(s): I10 - ESSENTIAL (PRIMARY) HYPERTENSION Qualifiers: Hypertension type: essential hypertension Qualified Code(s): I10 - Essential (primary) hypertension (6) Parkinson disease Code(s): G20 - PARKINSON'S DISEASE
[2019-04-07] MEDS ORDERED: PT OWN MED DRAWER 7, Y5N ONE ×2 (13:17→15:45)
[2019-04-07] MEDS: D5-1/2NS+20 MEQ KCL - 20 MEQ/1,000 ML INFUS.BAG IV SCH (18:45)
[2019-04-07] MEDS: CARBIDOPA/LEVODOPA 25/100 TABLET (FP) PO SCH (21:24)
[2019-04-08] MEDS ORDERED: PIPERACILLIN/TAZOBACTAM 3.375 GM VIAL IVPB ONE ×3 (01:49→17:11)
[2019-04-08] MEDS ORDERED: DEXTROSE 5%-WATER - 50 ML IVPB ONE ×3 (01:50→17:12)
[2019-04-08] MEDS: PIPERACILLIN/TAZOB 3.375 GM 3.375 GM in DEXTROSE 5%-WATER - 50 ML IVPB SCH ×3 (01:52→17:30)
--- NOTE | 2019-04-08 05:50 | PN ---
Progress Note (short form) - Note Progress Note: Clinically improved Collection is completely contained and decreasing in size Continue to advance diet and repeat CT as an outpatient Problem List - Problems (1) Appendicitis Code(s): K37 - UNSPECIFIED APPENDICITIS (2) Cecitis Code(s): K52.9 - NONINFECTIVE GASTROENTERITIS AND COLITIS, UNSPECIFIED
[2019-04-08] MEDS: GABAPENTIN 400 MG CAPSULE PO SCH ×3 (06:06→21:02)
[2019-04-08 07:44] LABS: BASO % 0.3 % (0-2.0); HEMATOCRIT 28.3 % (32.4-45.2); HEMOGLOBIN 9.2 GM/dL (10.7-15.3); LYMPH % 28.2 % (8-40); MCH 21.6 pg (25.7-33.7); MCHC 32.5 g/dl (32.0-36.0); MEAN CELL VOLUME 66.4 fl (80-96); MEAN PLT VOLUME 7.6 fl (7.5-11.1); MONO % 6.4 % (3.8-10.2); NEUT % 62.1 % (42.8-82.8); PLATELET COUNT 480 K/MM3 (134-434); RBC 4.27 M/mm3 (3.60-5.2); RDW 21.9 % (11.6-15.6)
[2019-04-08 08:13] LABS: ALBUMIN 2.4 g/dl (3.4-5.0); BILIRUBIN,TOTAL 0.7 mg/dL (0.2-1); BLOOD UREA NITROGEN 11.2 mg/dL (7-18); CALCIUM 8.7 mg/dL (8.5-10.1); CREATININE 0.5 mg/dL (0.55-1.3); POTASSIUM 3.7 mmol/L (3.5-5.1)
[2019-04-08] MEDS ORDERED: PT OWN MED DRAWER 7, Y5N ONE (09:13)
[2019-04-08] MEDS: NEBIVOLOL 5 MG TABLET (FP) PO SCH (09:51)
[2019-04-08] MEDS: CARBIDOPA/LEVODOPA 25/100 TABLET (FP) PO SCH ×4 (09:53→21:02)
[2019-04-08] MEDS: PANTOPRAZOLE SODIUM 40 MG VIAL IVPUSH SCH (09:57)
--- NOTE | 2019-04-08 12:09 | PN ---
Progress Note (short form) - Note Progress Note: pt seen/ examined chart reviewed all f/u noted awake/ comfortable low grade temp Vital Signs Temp 98.7 F 04/08/19 08:29 Pulse 85 04/08/19 08:29 Resp 20 04/08/19 08:29 BP 129/87 04/08/19 08:29 Pulse Ox 96 04/07/19 21:00 Intake & Output 04/07/19 04/08/19 04/08/19 23:59 11:59 23:59 Intake Total 900 100 Balance 900 100 Intake: IVPB 150 Oral 550 100 Oral Supplement 200 Other: Voiding Method Incontinent Incontinent # Unmeasured Voids Void 2 2 Bowel Movement Yes # Bowel Movements 1 Active Medications Acetaminophen (Tylenol -) 1,000 mg PO Q6H PRN PRN Reason: PAIN LEVEL 6-10 Last Admin: 04/07/19 10:26 Dose: 1,000 mg Carbidopa/Levodopa (Sinemet 25/100 -) 1 each PO QID [facility] Last Admin: 04/08/19 09:53 Dose: 1 each Gabapentin (Neurontin -) 400 mg PO TID [facility] Last Admin: 04/08/19 06:06 Dose: 400 mg Metronidazole (Flagyl 500mg Premixed Ivpb -) 500 mg in 100 mls @ 100 mls/hr IVPB Q8H-IV [facility] Last Admin: 04/08/19 11:14 Dose: 100 mls/hr Piperacillin Sod/Tazobactam (Sod 3.375 gm/ Dextrose) 50 mls @ 100 mls/hr IVPB Q8H-IV SOLANGE; Protocol Last Admin: 04/08/19 09:58 Dose: 100 mls/hr Potassium Chloride/Dextrose/Sod Cl (D5-1/2ns+20 Meq Kcl -) 20 meq in 1,000 mls @ 60 mls/hr IV ASDIR SOLANGE Last Admin: 04/07/19 18:45 Dose: Not Given Ibuprofen (Caldolor Injection -) 600 mg IVPB Q6H PRN PRN Reason: FEVER Last Admin: 04/05/19 21:13 Dose: 600 mg Nebivolol (Bystolic -) 5 mg PO DAILY [facility] Last Admin: 04/08/19 09:51 Dose: 5 mg Pantoprazole Sodium (Protonix Iv) 40 mg IVPUSH DAILY [facility] Last Admin: 04/08/19 09:57 Dose: 40 mg CBC, BMP 04/08/19 06:30 04/08/19 06:30 Physical Exam. awake/no distress S1 S2 RRR Lungs decreased breath sounds Abd- soft, mild tenderness + on deep palpation -- rlq No r/r Trace edema awake. PLAN Better Continue present care IV antibiotics continue with meds f/u labs No surgery planned at present surgery following daily oob - chair will follow Problem List - Problems (1) Appendicitis Code(s): K37 - UNSPECIFIED APPENDICITIS (2) Cecitis Code(s): K52.9 - NONINFECTIVE GASTROENTERITIS AND COLITIS, UNSPECIFIED (3) Weakness Code(s): R53.1 - WEAKNESS (4) Anemia Code(s): D64.9 - ANEMIA, UNSPECIFIED (5) Hypertension Code(s): I10 - ESSENTIAL (PRIMARY) HYPERTENSION Qualifiers: Hypertension type: essential hypertension Qualified Code(s): I10 - Essential (primary) hypertension (6) Parkinson disease Code(s): G20 - PARKINSON'S DISEASE
[2019-04-08] MEDS: D5-1/2NS+20 MEQ KCL - 20 MEQ/1,000 ML INFUS.BAG IV SCH (18:16)
[2019-04-09] MEDS ORDERED: PIPERACILLIN/TAZOBACTAM 3.375 GM VIAL IVPB ONE ×3 (01:16→17:49)
[2019-04-09] MEDS ORDERED: DEXTROSE 5%-WATER - 50 ML IVPB ONE ×3 (01:16→17:50)
[2019-04-09] MEDS: PIPERACILLIN/TAZOB 3.375 GM 3.375 GM in DEXTROSE 5%-WATER - 50 ML IVPB SCH ×3 (01:17→17:58)
[2019-04-09] MEDS: GABAPENTIN 400 MG CAPSULE PO SCH ×3 (06:27→21:31)
[2019-04-09 07:25] LABS: EOS % 4.8 % (0-4.5); HEMATOCRIT 27.2 % (32.4-45.2); HEMOGLOBIN 8.8 GM/dL (10.7-15.3); LYMPH % 33.1 % (8-40); MCH 21.7 pg (25.7-33.7); MCHC 32.4 g/dl (32.0-36.0); MEAN CELL VOLUME 66.9 fl (80-96); MEAN PLT VOLUME 7.5 fl (7.5-11.1); MONO % 6.9 % (3.8-10.2); NEUT % 54.2 % (42.8-82.8); PLATELET COUNT 448 K/MM3 (134-434); RBC 4.07 M/mm3 (3.60-5.2); RDW 22.1 % (11.6-15.6); WHITE BLOOD COUNT 8.5 K/mm3 (4.0-10.0)
[2019-04-09 08:00] LABS: ALBUMIN 2.3 g/dl (3.4-5.0); BILIRUBIN,TOTAL 0.5 mg/dL (0.2-1); BLOOD UREA NITROGEN 10.2 mg/dL (7-18); CALCIUM 8.4 mg/dL (8.5-10.1); CREATININE 0.5 mg/dL (0.55-1.3); POTASSIUM 3.8 mmol/L (3.5-5.1); TOT PROT 5.6 g/dl (6.4-8.2)
[2019-04-09] MEDS: NEBIVOLOL 5 MG TABLET (FP) PO SCH (10:08)
[2019-04-09] MEDS: CARBIDOPA/LEVODOPA 25/100 TABLET (FP) PO SCH ×4 (10:08→21:31)
[2019-04-09] MEDS: PANTOPRAZOLE SODIUM 40 MG VIAL IVPUSH SCH (10:10)
--- NOTE | 2019-04-09 12:55 | PN ---
Progress Note (short form) - Note Progress Note: no fever no pain pt appears comfortable tolerating clears Vital Signs - 24 hr 04/08/19 04/08/19 04/08/19 13:57 18:53 20:47 Temperature 99.4 F 98.9 F Pulse Rate 80 76 85 Respiratory 20 20 20 Rate Blood Pressure 148/77 112/50 L 131/62 O2 Sat by Pulse Oximetry (%) 04/08/19 04/09/19 04/09/19 21:00 06:01 08:30 Temperature 98.4 F Pulse Rate 80 Respiratory 20 20 20 Rate Blood Pressure 131/74 O2 Sat by Pulse 95 95 Oximetry (%) 04/09/19 09:58 Temperature 98 F Pulse Rate 81 Respiratory 18 Rate Blood Pressure 140/77 O2 Sat by Pulse Oximetry (%) Current Medications Generic Name Dose Route Start Last Admin Trade Name Freq PRN Reason Stop Dose Admin Acetaminophen 1,000 mg 03/30/19 14:37 04/07/19 10:26 Tylenol - PO 1,000 mg Q6H PRN Administration PAIN LEVEL 6-10 Carbidopa/Levodopa 1 each 04/07/19 22:00 04/09/19 10:08 Sinemet 25/100 - PO 1 each QID [facility] Administration Gabapentin 400 mg 03/31/19 06:00 04/09/19 06:27 Neurontin - PO 400 mg TID [facility] Administration Metronidazole 500 mg in 100 mls @ 100 mls/hr 03/29/19 12:00 04/09/19 10:08 Flagyl 500mg Premixed Ivpb - IVPB 100 mls/hr Q8H-IV [facility] Administration Piperacillin Sod/Tazobactam 50 mls @ 100 mls/hr 03/31/19 10:00 04/09/19 10:10 Sod 3.375 gm/ Dextrose IVPB 100 mls/hr Q8H-IV [facility] Administration Protocol Potassium Chloride/Dextrose/Sod Cl 20 meq in 1,000 mls @ 60 mls/hr 03/31/19 18 :30 04/08/19 18:16 D5-1/2ns+20 Meq Kcl - IV Not Given ASDIR SOLANGE Ibuprofen 600 mg 03/30/19 12:25 04/05/19 21:13 Caldolor Injection - IVPB 600 mg Q6H PRN Administration FEVER Nebivolol 5 mg 03/30/19 10:00 04/09/19 10:08 Bystolic - PO 5 mg DAILY [facility] Administration Pantoprazole Sodium 40 mg 03/31/19 10:00 04/09/19 10:10 Protonix Iv IVPUSH 40 mg DAILY [facility] Administration Laboratory Results - last 24 hr 04/09/19 04/09/19 06:48 06:48 WBC 8.5 RBC 4.07 Hgb 8.8 L Hct 27.2 L MCV 66.9 L MCH 21.7 L MCHC 32.4 RDW 22.1 H Plt Count 448 H MPV 7.5 Absolute Neuts (auto) 4.6 Neutrophils % 54.2 Lymphocytes % 33.1 Monocytes % 6.9 Eosinophils % 4.8 H Basophils % 1.0 D Nucleated RBC % 0 Sodium 139 Potassium 3.8 Chloride 107 Carbon Dioxide 27 Anion Gap 6 L BUN 10.2 Creatinine 0.5 L Est GFR (CKD-EPI)AfAm 114.45 Est GFR (CKD-EPI)NonAf 98.75 Random Glucose 93 Calcium 8.4 L Total Bilirubin 0.5 AST 19 ALT 14 Alkaline Phosphatase 51 Total Protein 5.6 L Albumin 2.3 L S1 S2 RRR Lungs decreased breath sounds Abd- soft, obese,tenderness in RLQ Trace edema PLAN IV fluids dc has previous compression fractures of spine since 2011- spoke with Neurology-- spoke with Dr Dennis tompkins per surgeon-- advance diet -- tolerating diet IV antibiotics per ID continue with meds Surgical follow up noted clinically improving needs CT abd as outpt also MRI spine pending -- Ordered by Neurology Problem List - Problems (1) Appendicitis Code(s): K37 - UNSPECIFIED APPENDICITIS (2) Cecitis Code(s): K52.9 - NONINFECTIVE GASTROENTERITIS AND COLITIS, UNSPECIFIED (3) Weakness Code(s): R53.1 - WEAKNESS (4) Anemia Code(s): D64.9 - ANEMIA, UNSPECIFIED (5) Hypertension Code(s): I10 - ESSENTIAL (PRIMARY) HYPERTENSION Qualifiers: Hypertension type: essential hypertension Qualified Code(s): I10 - Essential (primary) hypertension (6) Parkinson disease Code(s): G20 - PARKINSON'S DISEASE
[2019-04-09 14:03] LABS: ANISOCYTOSIS 1+; MACROCYTOSIS 1+; OVALOCYTE 1+; PLATELET ESTIMATE NORMAL; TARGET CELLS 1+; TEAR DROP CELLS 1+
[2019-04-10] MEDS ORDERED: DEXTROSE 5%-WATER - 50 ML IVPB ONE ×3 (00:59→17:34)
[2019-04-10] MEDS ORDERED: PIPERACILLIN/TAZOBACTAM 3.375 GM VIAL IVPB ONE ×3 (00:59→17:33)
[2019-04-10] MEDS: PIPERACILLIN/TAZOB 3.375 GM 3.375 GM in DEXTROSE 5%-WATER - 50 ML IVPB SCH ×3 (01:06→17:36)
[2019-04-10] MEDS: GABAPENTIN 400 MG CAPSULE PO SCH ×3 (06:16→21:03)
--- NOTE | 2019-04-10 09:27 | PN ---
Progress Note (short form) - Note Progress Note: no fever no pain pt appears comfortable tolerating diet Vital Signs - 24 hr 04/09/19 04/09/19 04/10/19 21:00 22:00 07:45 Temperature 99.2 F Pulse Rate 89 Respiratory 17 17 17 Rate Blood Pressure 144/76 O2 Sat by Pulse 96 96 Oximetry (%) 04/10/19 04/10/19 04/10/19 08:12 13:35 18:00 Temperature 98 F 97.9 F 98.7 F Pulse Rate 81 85 80 Respiratory 18 18 19 Rate Blood Pressure 132/77 149/83 143/79 O2 Sat by Pulse Oximetry (%) Current Medications Generic Name Dose Route Start Last Admin Trade Name Freq PRN Reason Stop Dose Admin Acetaminophen 1,000 mg 03/30/19 14:37 04/07/19 10:26 Tylenol - PO 1,000 mg Q6H PRN Administration PAIN LEVEL 6-10 Carbidopa/Levodopa 1 each 04/07/19 22:00 04/10/19 17:37 Sinemet 25/100 - PO 1 each QID [facility] Administration Gabapentin 400 mg 03/31/19 06:00 04/10/19 15:00 Neurontin - PO 400 mg TID [facility] Administration Metronidazole 500 mg in 100 mls @ 100 mls/hr 03/29/19 12:00 04/10/19 17:37 Flagyl 500mg Premixed Ivpb - IVPB 100 mls/hr Q8H-IV [facility] Administration Piperacillin Sod/Tazobactam 50 mls @ 100 mls/hr 03/31/19 10:00 04/10/19 17:36 Sod 3.375 gm/ Dextrose IVPB 100 mls/hr Q8H-IV [facility] Administration Protocol Ibuprofen 600 mg 03/30/19 12:25 04/05/19 21:13 Caldolor Injection - IVPB 600 mg Q6H PRN Administration FEVER Nebivolol 5 mg 03/30/19 10:00 04/10/19 09:50 Bystolic - PO 5 mg DAILY [facility] Administration Pantoprazole Sodium 40 mg 04/10/19 10:00 04/10/19 09:53 Protonix - PO Not Given DAILY SOLANGE S1 S2 RRR Lungs decreased breath sounds Abd- soft, obese,tenderness in RLQ Trace edema PLAN IV fluids dc has previous compression fractures of spine since 2011- spoke with Neurology-- spoke with Dr Dennis tompkins MRI shows old fracture L3 per surgeon-- advance diet -- tolerating diet IV antibiotics per ID continue with meds Surgical follow up noted clinically improving needs CT abd as outpt chest CT ordered to evaluate ring like lesion on MRI Problem List - Problems (1) Appendicitis Code(s): K37 - UNSPECIFIED APPENDICITIS (2) Cecitis Code(s): K52.9 - NONINFECTIVE GASTROENTERITIS AND COLITIS, UNSPECIFIED (3) Weakness Code(s): R53.1 - WEAKNESS (4) Anemia Code(s): D64.9 - ANEMIA, UNSPECIFIED (5) Hypertension Code(s): I10 - ESSENTIAL (PRIMARY) HYPERTENSION Qualifiers: Hypertension type: essential hypertension Qualified Code(s): I10 - Essential (primary) hypertension (6) Parkinson disease Code(s): G20 - PARKINSON'S DISEASE
[2019-04-10] MEDS: CARBIDOPA/LEVODOPA 25/100 TABLET (FP) PO SCH ×4 (09:50→21:02)
[2019-04-10] MEDS: NEBIVOLOL 5 MG TABLET (FP) PO SCH (09:50)
[2019-04-10] MEDS: PANTOPRAZOLE 40 MG TABLET PO SCH (09:53)
--- NOTE | 2019-04-10 13:47 | PN ---
Progress Note (short form) - Note Progress Note: Nasrin Park is a 68 year old female with a past medical history of Parkinson' s disease (on Sinemet), HTN, arthritis who presents with a 5 day history of weakness, lethargy, intermittent shortness of breath, cough. The patient was noted by the who is at bedside to have become more tired and not ambulating as well as she usually does. Normally, the patient is able to ambulate with a walker. She was noted to have a productive cough of clear to white sputum as well as some intermitted shortness of breath. The patient slept most of the day and did not have good PO intake in the last several days. Endorsed subjective fever. noted that the patient had been having a longer standing history of constipation and takes over the counter medications for the constipation. Denied melena or hematochezia. Additionally, the notes that the patient takes over the counter NSAIDs Advil, Alleve, aspirin for pain in her shoulder on a daily basis. Intermittently complained of mild and non-specific abdominal pain. Denied any liver history, nausea, vomiting, chest pain, headaches, dizziness, lightheadedness, falls. Denied sick contacts or recent travel. On interview, patient was responsive to commands but denied any acute complaints. Kept her eyes closed throughout the interview and repeated the same request of wanting a medication to help her sleep. Did answer questions appropriately. Pt. is noted to be wheelchair bound at home. Hospital events noted, she reports she has had PD for years, does not recall meds she has been on ad that x years she has not been able to ambulate 2/2 "leg weakness". Unable to give further hx. MRI T SPINE: Impression No evidence of cord compression. No suspicious signal intensity changes within the thoracic cord. No evidence of pathologic bone marrow replacement thoracic vertebrae, acute compression fracture or paraspinal masses.. On axial T2 #18 there is questionable ringlike lesion in the left upper lobe. It was not clearly delineated on the coronal images. Correlation with CT scan of the chest recommended for further evaluation. MRI C SPINE Impression: No evidence of cord compression. No suspicious signal intensity changes within the cervical cord.. No evidence of demyelinating plaques or suspicious cervical cord mass lesion. MRI LS spine Impression: No suspicious compromise of the cauda equina or any suspicious signal intensity changes within distal thoracic cord. Old compression fracture with significant collapse of L3 with retropulsion contributing to moderate degree of stenosis. 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 Cardio/Vascular: Yes: HTN ...: No Psych: Yes: Anxiety (Suspected) Musculoskeletal: Yes: Chronic low back pain, Other (L3 compression fracture, Contracture of the R-Foot) - Past Surgical History Past Surgical History: Yes: None, Hernia Repair (ABD x3), Joint Replacement (L: TSA, TKA R: TKA), Tubal Ligation - Alcohol/Substance Use Hx Alcohol Use: No History of Substance Use: reports: None - Smoking History Smoking history: Never smoked Have you smoked in the past 12 months: No Aproximately how many cigarettes per day: 0 - Social History Usual Living Arrangement: With Spouse ADL: Family Assistance History of Recent Travel: No Home Medications - Allergies Allergies/Adverse Reactions: Allergies Allergy/AdvReac Type Severity Reaction Status Date / Time iodine [Iodine] Allergy Unknown Rash Verified 03/28/19 18:00 - Home Medications Home Medications: Ambulatory Orders Sertraline HCl [Zoloft -] 50 mg PO DAILY tablet 10/24/14 Gabapentin [Neurontin -] 400 mg PO TID 11/03/14 Carbidopa/Levodopa *Cr* 25/100 [Sinemet *Cr* 25/100 -] 1 combo PO QID 12/13/14 Aspirin Coated [Ecotrin -] 81 mg PO DAILY #30 tablet.ec 01/26/16 Cephalexin Monohydrate [Keflex -] 500 mg PO Q6H #40 capsule 11/11/16 Physical Exam-Neuro Vital Signs: Vital Signs Temperature 97.9 F 04/10/19 13:35 Pulse Rate 85 04/10/19 13:35 Respiratory Rate 18 04/10/19 13:35 Blood Pressure 149/83 04/10/19 13:35 O2 Sat by Pulse Oximetry (%) 96 04/10/19 07:45 Labs: CBC, BMP 04/04/19 06:45 04/04/19 06:45 INR, PTT INR 1.35 (0.83-1.09) H 03/29/19 12:10 - Neuro Exam Level Of Consciousness: Yes: Alert, Oriented to Person, Oriented to Place Eyes: Yes: PERRL Speech: Other (hypophonic, festinant) Mini Mental Exam: Impaired STM/concentration Cranial Nerves II-XII Intact: No (diminished right NLF) DTR's: 0 Left Achilles, 0 Right Achilles, 1+ Left Bicep, 1+ Right Bicep, 1+ Left Tricep, 1+ Right Tricep, 1+ Left Brachioradialis, 1+ Right Brachioradialis Babinski: Present (bilat upgoing toes) Movement Disorders: Other (No rigidity in all 4 extremities) Motor Strength: limited hip flexion though with best effort quads, hams, TA appaer strong, though inc tone /deconditioned Gait: Other (unable to stand) Assessment/Plan progressive vs static gait disturbance in setting possible PD, prio lumbar FX and now admitted for abdominal infection /abcess -- ideally more HX from prior neuro, 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
[2019-04-11] MEDS ORDERED: PIPERACILLIN/TAZOBACTAM 3.375 GM VIAL IVPB ONE ×4 (00:53→23:39)
[2019-04-11] MEDS ORDERED: DEXTROSE 5%-WATER - 50 ML IVPB ONE ×4 (00:53→23:39)
[2019-04-11] MEDS: PIPERACILLIN/TAZOB 3.375 GM 3.375 GM in DEXTROSE 5%-WATER - 50 ML IVPB SCH ×3 (01:34→17:13)
[2019-04-11] MEDS: GABAPENTIN 400 MG CAPSULE PO SCH ×3 (05:05→22:35)
[2019-04-11] MEDS: PANTOPRAZOLE 40 MG TABLET PO SCH (10:34)
[2019-04-11] MEDS: CARBIDOPA/LEVODOPA 25/100 TABLET (FP) PO SCH ×4 (10:34→22:35)
[2019-04-11] MEDS: NEBIVOLOL 5 MG TABLET (FP) PO SCH (10:34)
--- NOTE | 2019-04-11 11:00 | PN ---
Progress Note (short form) - Note Progress Note: pt seen/ examined chart reviewed comfortable no distress poor historian afebrile denies pain Vital Signs Temp 98.8 F 04/11/19 08:48 Pulse 80 04/11/19 08:48 Resp 18 04/11/19 08:48 BP 155/83 04/11/19 08:48 Pulse Ox 96 04/10/19 21:00 Intake & Output 04/10/19 04/10/19 04/11/19 11:59 23:59 11:59 Intake Total 250 350 220 Balance 250 350 220 Intake: IV 0 SL 0 IVPB 150 200 Oral 100 150 120 Oral Supplement 100 Other: Voiding Method Incontinent Incontinent Incontinent # Unmeasured Voids Void 2 Bowel Movement No Yes: 2 No Active Medications Acetaminophen (Tylenol -) 1,000 mg PO Q6H PRN PRN Reason: PAIN LEVEL 6-10 Last Admin: 04/07/19 10:26 Dose: 1,000 mg Carbidopa/Levodopa (Sinemet 25/100 -) 1 each PO QID [facility] Last Admin: 04/11/19 10:34 Dose: 1 each Gabapentin (Neurontin -) 400 mg PO TID [facility] Last Admin: 04/11/19 05:05 Dose: 400 mg Metronidazole (Flagyl 500mg Premixed Ivpb -) 500 mg in 100 mls @ 100 mls/hr IVPB Q8H-IV [facility] Last Admin: 04/11/19 10:54 Dose: 100 mls/hr Piperacillin Sod/Tazobactam (Sod 3.375 gm/ Dextrose) 50 mls @ 100 mls/hr IVPB Q8H-IV [facility]; Protocol Last Admin: 04/11/19 10:32 Dose: 100 mls/hr Ibuprofen (Caldolor Injection -) 600 mg IVPB Q6H PRN PRN Reason: FEVER Last Admin: 04/05/19 21:13 Dose: 600 mg Nebivolol (Bystolic -) 5 mg PO DAILY [facility] Last Admin: 04/11/19 10:34 Dose: 5 mg Pantoprazole Sodium (Protonix -) 40 mg PO DAILY [facility] Last Admin: 04/11/19 10:34 Dose: 40 mg CBC, BMP 04/09/19 06:48 04/09/19 06:48 Physical Exam. comfortable S1 S2 RRR Lungs decreased breath sounds Abd- soft, obese,minimal tenderness rlq Trace edema PLAN clinically better has previous compression fractures of spine since 2012- spoke with Neurology-- spoke with Dr Dennis tompkins MRI shows old fracture L3 per surgeon-- advance diet -- tolerating diet IV antibiotics per ID -- to follow continue with meds clinically improving needs CT abd as outpt chest CT - pending report will follow f/u labs Problem List - Problems (1) Appendicitis Code(s): K37 - UNSPECIFIED APPENDICITIS (2) Cecitis Code(s): K52.9 - NONINFECTIVE GASTROENTERITIS AND COLITIS, UNSPECIFIED (3) Weakness Code(s): R53.1 - WEAKNESS (4) Anemia Code(s): D64.9 - ANEMIA, UNSPECIFIED (5) Hypertension Code(s): I10 - ESSENTIAL (PRIMARY) HYPERTENSION Qualifiers: Hypertension type: essential hypertension Qualified Code(s): I10 - Essential (primary) hypertension (6) Parkinson disease Code(s): G20 - PARKINSON'S DISEASE
[2019-04-11] MEDS: ACETAMINOPHEN 500 MG TABLET (FP) PO PRN (16:26)
[2019-04-12] MEDS: PIPERACILLIN/TAZOB 3.375 GM 3.375 GM in DEXTROSE 5%-WATER - 50 ML IVPB SCH ×3 (01:06→17:56)
[2019-04-12] MEDS: GABAPENTIN 400 MG CAPSULE PO SCH ×3 (05:29→21:01)
[2019-04-12 07:43] LABS: BASO % 0.7 % (0-2.0); EOS % 4.4 % (0-4.5); HEMATOCRIT 27.5 % (32.4-45.2); HEMOGLOBIN 8.9 GM/dL (10.7-15.3); MCH 21.7 pg (25.7-33.7); MCHC 32.3 g/dl (32.0-36.0); MEAN CELL VOLUME 67.3 fl (80-96); MEAN PLT VOLUME 7.6 fl (7.5-11.1); NEUT % 61.9 % (42.8-82.8); PLATELET COUNT 424 K/MM3 (134-434); RBC 4.09 M/mm3 (3.60-5.2); RDW 22.8 % (11.6-15.6); WHITE BLOOD COUNT 7.8 K/mm3 (4.0-10.0)
[2019-04-12 08:15] LABS: ALBUMIN 2.4 g/dl (3.4-5.0); BILIRUBIN,TOTAL 0.5 mg/dL (0.2-1); BLOOD UREA NITROGEN 12.4 mg/dL (7-18); CALCIUM 8.6 mg/dL (8.5-10.1); CREATININE 0.6 mg/dL (0.55-1.3); POTASSIUM 4.1 mmol/L (3.5-5.1)
[2019-04-12] MEDS ORDERED: PIPERACILLIN/TAZOBACTAM 3.375 GM VIAL IVPB ONE ×2 (09:06→17:11)
[2019-04-12] MEDS ORDERED: DEXTROSE 5%-WATER - 50 ML IVPB ONE ×2 (09:06→17:11)
[2019-04-12] MEDS: NEBIVOLOL 5 MG TABLET (FP) PO SCH (10:25)
[2019-04-12] MEDS: CARBIDOPA/LEVODOPA 25/100 TABLET (FP) PO SCH ×4 (10:25→21:01)
[2019-04-12] MEDS: PANTOPRAZOLE 40 MG TABLET PO SCH (10:25)
--- NOTE | 2019-04-12 13:10 | PN ---
Progress Note (short form) - Note Progress Note: no fever no pain pt appears comfortable tolerating diet Vital Signs - 24 hr 04/11/19 04/11/19 04/11/19 14:41 18:00 21:00 Temperature 99.3 F 98.5 F Pulse Rate 91 H 79 Respiratory 20 20 Rate Blood Pressure 152/84 130/75 O2 Sat by Pulse 96 Oximetry (%) 04/11/19 04/12/19 04/12/19 22:00 06:00 08:36 Temperature 98.1 F 98.0 F 99.1 F Pulse Rate 92 H 80 103 H Respiratory 17 18 18 Rate Blood Pressure 150/84 129/70 131/81 O2 Sat by Pulse Oximetry (%) 04/12/19 09:00 Temperature Pulse Rate Respiratory Rate Blood Pressure O2 Sat by Pulse 96 Oximetry (%) Current Medications Generic Name Dose Route Start Last Admin Trade Name Freq PRN Reason Stop Dose Admin Acetaminophen 1,000 mg 03/30/19 14:37 04/11/19 16:26 Tylenol - PO 1,000 mg Q6H PRN Administration PAIN LEVEL 6-10 Carbidopa/Levodopa 1 each 04/07/19 22:00 04/12/19 13:03 Sinemet 25/100 - PO 1 each QID [facility] Administration Gabapentin 400 mg 03/31/19 06:00 04/12/19 13:05 Neurontin - PO 400 mg TID [facility] Administration Metronidazole 500 mg in 100 mls @ 100 mls/hr 03/29/19 12:00 04/12/19 10:25 Flagyl 500mg Premixed Ivpb - IVPB 100 mls/hr Q8H-IV [facility] Administration Piperacillin Sod/Tazobactam 50 mls @ 100 mls/hr 03/31/19 10:00 04/12/19 09:18 Sod 3.375 gm/ Dextrose IVPB 100 mls/hr Q8H-IV [facility] Administration Protocol Ibuprofen 600 mg 03/30/19 12:25 04/05/19 21:13 Caldolor Injection - IVPB 600 mg Q6H PRN Administration FEVER Nebivolol 5 mg 03/30/19 10:00 04/12/19 10:25 Bystolic - PO 5 mg DAILY [facility] Administration Pantoprazole Sodium 40 mg 04/10/19 10:00 04/12/19 10:25 Protonix - PO 40 mg DAILY [facility] Administration Laboratory Results - last 24 hr 04/12/19 04/12/19 06:15 06:15 WBC 7.8 RBC 4.09 Hgb 8.9 L Hct 27.5 L MCV 67.3 L MCH 21.7 L MCHC 32.3 RDW 22.8 H Plt Count 424 MPV 7.6 Absolute Neuts (auto) 4.8 Neutrophils % 61.9 Lymphocytes % 26.0 D Monocytes % 7.0 Eosinophils % 4.4 Basophils % 0.7 Nucleated RBC % 0 Sodium 140 Potassium 4.1 Chloride 106 Carbon Dioxide 27 Anion Gap 7 L BUN 12.4 Creatinine 0.6 Est GFR (CKD-EPI)AfAm 107.79 Est GFR (CKD-EPI)NonAf 93.00 Random Glucose 93 Calcium 8.6 Total Bilirubin 0.5 AST 16 ALT 13 Alkaline Phosphatase 49 Total Protein 6.0 L Albumin 2.4 L S1 S2 RRR Lungs decreased breath sounds Abd- soft, obese,tenderness in RLQ Trace edema PLAN IV fluids dc has previous compression fractures of spine since 2011- spoke with Neurology-- spoke with Dr Dennis tompkins MRI shows old fracture L3 per surgeon-- advance diet -- tolerating diet IV antibiotics per ID -- follow up continue with meds Surgical follow up noted clinically improving needs CT abd as outpt chest CT noted-- no ring like lesion noted spoke with -- dc planing to STR Problem List - Problems (1) Appendicitis Code(s): K37 - UNSPECIFIED APPENDICITIS (2) Cecitis Code(s): K52.9 - NONINFECTIVE GASTROENTERITIS AND COLITIS, UNSPECIFIED (3) Weakness Code(s): R53.1 - WEAKNESS (4) Anemia Code(s): D64.9 - ANEMIA, UNSPECIFIED (5) Hypertension Code(s): I10 - ESSENTIAL (PRIMARY) HYPERTENSION Qualifiers: Hypertension type: essential hypertension Qualified Code(s): I10 - Essential (primary) hypertension (6) Parkinson disease Code(s): G20 - PARKINSON'S DISEASE
[2019-04-12] MEDS: ACETAMINOPHEN 500 MG TABLET (FP) PO PRN (14:00)
[2019-04-12] MEDS ORDERED: IBUPROFEN 600 MG TABLET (FP) PO PRN (16:54)
[2019-04-12] MEDS: LIDOCAINE 5% TOPICAL PATCH TP SCH (17:54)
[2019-04-12] MEDS ORDERED: LIDOCAINE PATCH REMOVAL MC SCH (22:00)
--- NOTE | 2019-04-12 22:13 | PN ---
Progress Note, Physician Chief Complaint: AWAKE IN BED RESPONSIVE, DYSARTHRIC TEMPS DOWN WBC WNL REPEAT CT SHOWS IMPROVEMENT SURGICAL F/U APPRECIATED - Current Medication List Current Medications: Active Medications Acetaminophen (Tylenol -) 1,000 mg PO Q6H PRN PRN Reason: PAIN LEVEL 6-10 Last Admin: 04/12/19 14:00 Dose: 1,000 mg Carbidopa/Levodopa (Sinemet 25/100 -) 1 each PO QID [facility] Last Admin: 04/12/19 21:01 Dose: 1 each Gabapentin (Neurontin -) 400 mg PO TID [facility] Last Admin: 04/12/19 21:01 Dose: 400 mg Metronidazole (Flagyl 500mg Premixed Ivpb -) 500 mg in 100 mls @ 100 mls/hr IVPB Q8H-IV [facility] Last Admin: 04/12/19 18:44 Dose: 100 mls/hr Piperacillin Sod/Tazobactam (Sod 3.375 gm/ Dextrose) 50 mls @ 100 mls/hr IVPB Q8H-IV [facility]; Protocol Last Admin: 04/12/19 17:56 Dose: 100 mls/hr Ibuprofen (Motrin -) 600 mg PO Q6H PRN PRN Reason: FEVER Lidocaine (Lidoderm Patch -) 1 patch TP DAILY [facility] Last Admin: 04/12/19 17:54 Dose: 1 patch Miscellaneous (Lidoderm Patch Removal) 1 each MC DAILY@2200 [facility] Last Admin: 04/12/19 21:01 Dose: 1 each Nebivolol (Bystolic -) 5 mg PO DAILY [facility] Last Admin: 04/12/19 10:25 Dose: 5 mg Pantoprazole Sodium (Protonix -) 40 mg PO DAILY [facility] Last Admin: 04/12/19 10:25 Dose: 40 mg - Objective Vital Signs: Vital Signs Temperature 98.8 F 04/12/19 22:00 Pulse Rate 79 04/12/19 22:00 Respiratory Rate 17 04/12/19 22:00 Blood Pressure 106/55 L 04/12/19 22:00 O2 Sat by Pulse Oximetry (%) 96 04/12/19 09:00 Constitutional: Yes: No Distress, Obese Eyes: Yes: Conjunctiva Clear Cardiovascular: Yes: Regular Rate and Rhythm, S1, S2 Respiratory: Yes: CTA Bilaterally Gastrointestinal: Yes: Normal Bowel Sounds, Soft, Abdomen, Obese. No: Tenderness Edema: No Labs: CBC, BMP 04/12/19 06:15 04/12/19 06:15 INR, PTT INR 1.35 (0.83-1.09) H 03/29/19 12:10 Assessment/Plan RLQ INFLAMMATORY PROCESS FEVER/ LEUKOCYTOSIS resolved DAY#15 IV ANTIBIOTICS [facility]
[2019-04-13] MEDS ORDERED: PIPERACILLIN/TAZOBACTAM 3.375 GM VIAL IVPB ONE ×2 (01:23→09:08)
[2019-04-13] MEDS ORDERED: DEXTROSE 5%-WATER - 50 ML IVPB ONE ×2 (01:24→09:08)
[2019-04-13] MEDS: PIPERACILLIN/TAZOB 3.375 GM 3.375 GM in DEXTROSE 5%-WATER - 50 ML IVPB SCH ×2 (01:36→09:33)
[2019-04-13] MEDS: GABAPENTIN 400 MG CAPSULE PO SCH ×2 (06:20→14:19)
[2019-04-13] MEDS: CARBIDOPA/LEVODOPA 25/100 TABLET (FP) PO SCH ×2 (09:34→14:19)
[2019-04-13] MEDS: PANTOPRAZOLE 40 MG TABLET PO SCH (09:34)
[2019-04-13] MEDS: LIDOCAINE 5% TOPICAL PATCH TP SCH (09:34)
[2019-04-13] MEDS: NEBIVOLOL 5 MG TABLET (FP) PO SCH (09:34)
[2019-04-13] MEDS: ACETAMINOPHEN 500 MG TABLET (FP) PO PRN (09:48)
--- NOTE | 2019-04-13 10:24 | PN ---
Progress Note, Physician Chief Complaint: AWAKE IN BED RESPONSIVE, DYSARTHRIC REMAINS AFEBRILE - Current Medication List Current Medications: Active Medications Acetaminophen (Tylenol -) 1,000 mg PO Q6H PRN PRN Reason: PAIN LEVEL 6-10 Last Admin: 04/13/19 09:48 Dose: 1,000 mg Carbidopa/Levodopa (Sinemet 25/100 -) 1 each PO QID [facility] Last Admin: 04/13/19 09:34 Dose: 1 each Gabapentin (Neurontin -) 400 mg PO TID [facility] Last Admin: 04/13/19 06:20 Dose: 400 mg Metronidazole (Flagyl 500mg Premixed Ivpb -) 500 mg in 100 mls @ 100 mls/hr IVPB Q8H-IV [facility] Last Admin: 04/13/19 01:36 Dose: 100 mls/hr Piperacillin Sod/Tazobactam (Sod 3.375 gm/ Dextrose) 50 mls @ 100 mls/hr IVPB Q8H-IV [facility]; Protocol Last Admin: 04/13/19 09:33 Dose: 100 mls/hr Ibuprofen (Motrin -) 600 mg PO Q6H PRN PRN Reason: FEVER Lidocaine (Lidoderm Patch -) 1 patch TP DAILY [facility] Last Admin: 04/13/19 09:34 Dose: 1 patch Miscellaneous (Lidoderm Patch Removal) 1 each MC DAILY@2200 [facility] Last Admin: 04/12/19 21:01 Dose: 1 each Nebivolol (Bystolic -) 5 mg PO DAILY [facility] Last Admin: 04/13/19 09:34 Dose: 5 mg Pantoprazole Sodium (Protonix -) 40 mg PO DAILY [facility] Last Admin: 04/13/19 09:34 Dose: 40 mg - Objective Vital Signs: Vital Signs Temperature 99.1 F 04/13/19 06:00 Pulse Rate 74 04/13/19 06:00 Respiratory Rate 18 04/13/19 06:00 Blood Pressure 102/57 L 04/13/19 06:00 O2 Sat by Pulse Oximetry (%) 98 04/12/19 21:00 Constitutional: Yes: No Distress, Obese Cardiovascular: Yes: Regular Rate and Rhythm, S1, S2 Respiratory: Yes: CTA Bilaterally Gastrointestinal: Yes: Normal Bowel Sounds, Soft. No: Tenderness Labs: CBC, BMP 04/12/19 06:15 04/12/19 06:15 INR, PTT INR 1.35 (0.83-1.09) H 03/29/19 12:10 Assessment/Plan RLQ INFLAMMATORY PROCESS FEVER/ LEUKOCYTOSIS RESOLVED SUBSTITUTE AUGMENTIN 8875MG PO BID 7D OUTPATIENT SURGICAL F/U
--- NOTE | 2019-04-13 12:11 | DS ---
Physical Examination Vital Signs: Vital Signs Temperature 98.6 F 04/13/19 10:00 Pulse Rate 90 04/13/19 10:00 Respiratory Rate 18 04/13/19 10:00 Blood Pressure 124/71 04/13/19 10:00 O2 Sat by Pulse Oximetry (%) 98 04/12/19 21:00 Constitutional: Yes: No Distress, Calm Cardiovascular: Yes: Regular Rate and Rhythm Respiratory: Yes: Diminished Gastrointestinal: Yes: Normal Bowel Sounds, Soft, Abdomen, Obese. No: Tenderness Edema: No Labs: CBC, BMP 04/12/19 06:15 04/12/19 06:15 Discharge Summary Problems reviewed: Yes Reason For Visit: WEAKNESS, APPENDICITIS,CECITIS Current Active Problems Abdominal pain (Acute) Anemia (Acute) Appendicitis (Acute) Cecitis (Acute) Weakness (Acute) Hospital Course: ADMISSION HISTORY--- PCP: Dr. Debra Calloway HISTORY OF PRESENT ILLNESS: Nasrin Park is a 68 year old female with a past medical history of Parkinson' s disease (on Sinemet), HTN, arthritis who presents with a 5 day history of weakness, lethargy, intermittent shortness of breath, cough. The patient was noted by the who is at bedside to have become more tired and not ambulating as well as she usually does. Normally, the patient is able to ambulate with a walker. She was noted to have a productive cough of clear to white sputum as well as some intermitted shortness of breath. The patient slept most of the day and did not have good PO intake in the last several days. Endorsed subjective fever. noted that the patient had been having a longer standing history of constipation and takes over the counter medications for the constipation. Denied melena or hematochezia. Additionally, the notes that the patient takes over the counter NSAIDs Advil, Alleve, aspirin for pain in her shoulder on a daily basis. Intermittently complained of mild and non-specific abdominal pain. Denied any liver history, nausea, vomiting, chest pain, headaches, dizziness, lightheadedness, falls. Denied sick contacts or recent travel. On interview, patient was responsive to commands but denied any acute complaints. Kept her eyes closed throughout the interview and repeated the same request of wanting a medication to help her sleep. Did answer questions appropriately. ER course was notable for: (1) Tmax 100.5, BP 112/37, sat 98 on 2L NC (2) WBC 18.8, Hgb 7.6-->6.9, plts 643, MCV 64, BUN 34.7, AST 59, Alb 2.5 (3) CXR without acute pathology. (4) CT abdomen preliminary read noting Severe L3 compression fracture, of uncertain age. Mild T11 fracture, probably old. Focal inflammation / infection seen at right lower quadrant, including cecum and adjacent soft tissues. Compatible with cecitis. Appendix is not visualized separately, and appendicitis cannot be excluded (this may be secondary to cecal inflammation). No obstruction seen. Small air bubbles seen in the area of inflammation may be due to volume averaging artifact, abscess / infection, or microperforation. HOSPITAL COURSE-- CT abd/pelvis-- possible appendiceal , right lower quadrant abscess-- she was evaluated by Surgeon-- DR David --> no surgical interventions-- she was on iv antibiotics per ID She was seen by Neurology for parkinsons, worsening gait-- she had MRI C, T, LS spine-- old compression fracture of L3 She completed 15 days of IV antibiotics-- now requires 7more days of oral antibiotics repeat CT scans of abdomen shows improvement in abscess. She is assy,tomatic, no tenderness, afebrile, no elevated WBC As per surgeon she will need CT abd /pelvis as outpt -- in 2 weeks-- may need to see Interventional radiology for abscess drainage if collections persists . She needs iv contrast CT abd/pelvis-- she is allergic to iodine-- needs premedications prior to CT abd dc to STR for deconditioning , antibiotics, gait Condition: Stable - Instructions Diet, Activity, Other Instructions: repeat CT abd/pelvis in 2 weeks-- with iv contrast tp see collection in RLQ. needs IV contrast--needs premedication prior to iv contrast Referrals: Debra Calloway MD [Primary Care Provider] - Disposition: [facility] F[facility] - Home Medications Comprehensive Discharge Medication List: Ambulatory Orders Sertraline HCl [Zoloft -] 50 mg PO DAILY tablet 10/24/14 Gabapentin [Neurontin -] 400 mg PO TID 11/03/14 Carbidopa/Levodopa *Cr* 25/100 [Sinemet *Cr* 25/100 -] 1 combo PO QID 12/13/14 Aspirin Coated [Ecotrin -] 81 mg PO DAILY #30 tablet.ec 01/26/16 Cephalexin Monohydrate [Keflex -] 500 mg PO Q6H #40 capsule 11/11/16
[2019-04-13 15:03] VITALS: BP 116/70; PULSE 80; TEMP 97.9
[2019-04-13] MEDS ORDERED: AMOX TR/POT CLAV 875MG/125MG TABLETS (FP) PO SCH (17:30)
[2019-04-13] MEDS ORDERED: NYSTATIN/TRIAMCINOLONE TOPICAL CREAM 15 GM TUBE TP SCH (22:00)
== END 2019-04-13 15:23 | DRG 391 ==
LOC: JER 17:55 → JERBED 03-29 01:35 → J7W 03-29 15:51
PROVIDERS: ADMIT Internal Medicine; ATTEND Internal Medicine
PROC: 30233N1 Transfusion of Nonautologous Red Blood Cells into Peripheral Vein, Percutaneous Approach (ICD-10-PCS; principal; 2019-03-29)
DX: K52.9 Noninfective gastroenteritis and colitis, unspecified (principal); G93.41 Metabolic encephalopathy; R53.1 Weakness; D64.9 Anemia, unspecified; G20 Parkinson's disease; R50.9 Fever, unspecified; R53.83 Other fatigue; I10 Essential (primary) hypertension; E88.09 Other disorders of plasma-protein metabolism, not elsewhere classified; K37 Unspecified appendicitis; D72.829 Elevated white blood cell count, unspecified
CPT/HCPCS: 36415; 36511; 71045-TC-FY; 71250-TC; 72141-TC; 72146-TC; 72148-TC; 74176-TC; 80053; 81003; 82272; 83540; 83550; 83605; 83735; 84100; 84466; 84484; 85025; 85027; 85044; 85610; 85651; 85730; 86850; 86900; 86901; 86922; 87040; 87077; 87086; 87804; 93005; 93010; 94761; 97116-GP; 97162-GP; 99284-25; J0131; J7030; P9038; P9058